=== PATIENT | female | born 1960 | race Caucasian/White ===

== ENCOUNTER 2020-02-17 09:35 | Outpatient (CLI) | payer OTHER, SELFPAY ==
--- NOTE | ~2020-02-17 | MM_ITS ---
EXAMINATION: MM screening parisa BI w emili HISTORY: Screening mammogram TECHNIQUE: Craniocaudal and mediolateral oblique 3-D tomosynthesis images were obtained and synthetic 2-D images were generated. CAD analysis was submitted and interpreted. COMPARISON: 01/25/2019, 01/05/2018, 10/19/2016 bilateral digital screening mammogram examinations BREAST PARENCHYMAL COMPOSITION: There are scattered areas of fibroglandular density. FINDINGS: A few benign calcifications are noted. There is no evidence of suspicious mass, calcificati on, or architectural distortion to suggest malignancy in either breast. There has been no suspicious interval change. IMPRESSION: 1. No mammographic evidence of malignancy. 2. Recommend routine screening mammography in one year. BI-RADS Category 2: Benign finding(s). Reviewed, dictated and finalized at location A.
== END 2020-02-17 09:36 | disposition home or self-care (01) ==
PROVIDERS: PCP Family Medicine; Visit Provider Obstetrics & Gynecology
DX: Z12.31 Encounter for screening mammogram for malignant neoplasm of breast (principal)
CPT/HCPCS: 77063; 77067

== ENCOUNTER 2020-05-13 09:24 | Emergency (ER) | payer OTHER, SELFPAY ==
--- NOTE | ~2020-05-13 | XR_ITS ---
EXAMINATION: XR hip RT min 2V EXAM DATE: 05/13/2020 09:49 INDICATION: Initial encounter following injury, with pain of the right hip posteriorly. Fall a week ago. TECHNIQUE: Right hip frontal, crosstable lateral and 'frog-leg' projections for interpretation. The re is no prior study for comparison. FINDINGS: Smooth right hip femoral head contour, no radiographic evidence of avascular necrosis. The re are no acute fractures or dislocations identified. There is no subcutaneous gas. The soft tissue is unremarkable. There are no radiopaque foreign bodies. There is mild right hip primary osteoart hritis. IMPRESSION: No acute osseous findings. Reviewed, dictated and finalized at location A. IMPRESSION: No acute osseous findings.
[2020-05-13 09:32] VITALS: BP 109/69; PULSE 86; RESP 18; TEMP 36.3; O2SAT 99
--- NOTE | 2020-05-13 09:45 | ED.LOWEXIN ---
HPI - Extremity Injury (Lower) General Chief Complaint: Extremity Injury, Lower Stated Complaint: right hip pain Time Seen by Provider: 05/13/20 09:32 History of Present Illness HPI Narrative: She was cleaning and ran her right hip into a wall last week. She has had pain in the hip since that time. She has been able to walk and bear weight normally. No weakness, numbness, wound, bruising. She has been taking tylenol without relief. No previous injury. Related Data Home Medications Medication Instructions Recorded Confirmed diphenhydramine HCl 25 mg capsule 50 mg PO Q4-6H PRN cap 08/18/19 05/11/20 omega-3 fatty acids 1,000 mg 2,000 mg PO DAILY cap 08/25/19 05/11/20 capsule aspirin 81 mg tablet,delayed 81 mg PO DAILY 09/16/19 05/11/20 release levothyroxine 125 mcg tablet 125 mcg PO DAILY 10/14/19 05/11/20 Allergies Allergy/AdvReac Type Severity Reaction Status Date / Time No Known Allergies Allergy Unknown Verified 05/13/20 09:35 Review of Systems Review of Systems: All systems reviewed & are unremarkable except as noted in HPI and below Constitutional: Constitutional: Denies chills, Denies fever(s) and Denies weakness Cardiovascular: Cardiovascular: Denies chest pain Respiratory: Respiratory: Denies dyspnea Gastrointestinal: Gastrointestinal: Denies nausea and Denies vomiting Musculoskeletal: Musculoskeletal: Denies back pain Neurologic: Denies numbness and Denies weakness [facility] Past Medical History Medical History Chest pain in adult Chronic pulmonary embolism without acute cor pulmonale Combined systolic and diastolic cardiac dysfunction BLANKENSHIP (dyspnea on exertion) Essential hypertension Hypersomnia Hypothyroidism, unspecified Other hypertrophic cardiomyopathy Pulmonary embolism without acute cor pulmonale Severe mitral regurgitation SOB (shortness of breath) Type 2 diabetes mellitus without complications Wheezy bronchitis Surgical History Surgical History History of hysterectomy Family History Family History Father Hypertension Family history of rheumatoid arthritis Family history of malignant neoplasm Mother Cerebrovascular accident Family history of pulmonary embolism, Onset Age: 25 Grandparent Family history of coronary artery disease Diabetes mellitus Other Family history of diabetes mellitus in first degree relative Social History Social History Smoking status: Former smoker Smoking end date: 08/27/91 Alcohol intake: current Exam Const: General: no acute distress and alert Orientation/consciousness: patient oriented x3 HENMT: Head: normal to inspection Resp: Effort & Inspection: normal respiratory effort Auscultation: clear to auscultation bilaterally Cardio: Rate: regular rate Rhythm: regular rhythm Other: 2 + right DP Skin: General skin exam: normal color Rashes: no rashes Wounds: no wounds Other: No bruising Neuro: General: patient oriented x3, moves all extremities, no focal motor deficits and CN's II-XI intact bilaterally Speech: normal speech Extrem: Other: Tenderness over right hip. Otherwise normal exam Course Vital Signs Vital signs: Vital Signs Temperature 36.3 C L 05/13/20 09:32 Pulse Rate 86 05/13/20 09:32 Respiratory Rate 18 05/13/20 09:32 Blood Pressure 109/69 05/13/20 09:32 Pulse Oximetry 99 05/13/20 09:32 Temperature 36.3 C L 05/13/20 09:32 Pulse Rate 80 05/13/20 10:45 Respiratory Rate 15 05/13/20 10:45 Blood Pressure 106/66 05/13/20 10:45 Pulse Oximetry 98 05/13/20 10:45 MDM - Extremity Injury (Lower) MDM Narrative Medical decision making narrative: Negative x-ray. Medical Records Attestation: I reviewed the patient's medical records. Imaging
[2020-05-13] MEDS: KETOROLAC (*BKC) 60 MG/2 ML VIAL IM (10:04)
[2020-05-13 10:45] VITALS: BP 106/66; PULSE 80; RESP 15; O2SAT 98
== END 2020-05-13 10:46 | disposition home or self-care (01) ==
PROVIDERS: Emergency Provider Emergency Medicine; PCP Family Medicine
DX: S70.01XA Contusion of right hip, initial encounter (principal); W22.01XA Walked into wall, initial encounter; Z79.82 Long term (current) use of aspirin; I10 Essential (primary) hypertension; E03.9 Hypothyroidism, unspecified; E11.9 Type 2 diabetes mellitus without complications; I34.0 Nonrheumatic mitral (valve) insufficiency; Z86.711 Personal history of pulmonary embolism
CPT/HCPCS: 73502; 96372; 99283; J1885

== ENCOUNTER 2020-05-18 10:30 | Outpatient (CLI) | payer OTHER, SELFPAY ==
[2020-05-18 11:10] LABS: Alanine Aminotransferase 12 U/L (4-35); Albumin Level 4.4 g/dL (3.5-5.1); Alkaline Phosphatase 42 U/L (38-126); Anion Gap 8 mmol/L (8-16); Aspartate Amino Transferase 17 U/L (14-36); Bilirubin,Total 0.2 mg/dL (0.2-1.3); Blood Urea Nitrogen 31 mg/dL (7-17); Calcium 9.9 mg/dL (8.4-10.2); Carbon Dioxide 24 mmol/L (22-30); Chloride 102 mmol/L (98-107); Cholesterol 126 mg/dL (0-200); Estimated Glomerular Filt Rate 51; Glucose 107 mg/dL (65-105); HDL Direct 46 mg/dL; Potassium 5.2 mmol/L (3.4-5.0); Sodium 134 mmol/L (137-145); Triglycerides 154 mg/dL (<150)
[2020-05-18 11:21] LABS: LDL Cholesterol Direct 47 mg/dL
== END 2020-05-18 10:31 | disposition home or self-care (01) ==
LOC: ANHLAB 10:32
PROVIDERS: PCP Family Medicine; Visit Provider Internal Medicine Cardiovascular Disease
DX: E78.5 Hyperlipidemia, unspecified (principal)
CPT/HCPCS: 36415; 80053; 80061

== ENCOUNTER 2020-06-03 07:59 | Outpatient (CLI) | payer OTHER, SELFPAY ==
--- NOTE | ~2020-06-03 | CT_ITS ---
EXAMINATION: CT chest high resolution wo az DATE: 06/03/2020 08:27 INDICATION: Lung nodule TECHNIQUE: Computed tomography (CT) of the chest was performed without intravenous contrast. The dose -length product (DLP) was 117.78 mGy-cm. Automated exposure control and iterative reconstruction tech nique were employed. COMPARISON: 01/24/2019, 01/25/2016 FINDINGS: There is a stable 1.6 x 0.9 cm calcified nodule of the right lower lobe. No new or suspicio us pulmonary nodule is identified. The lungs are free of acute opacities. There is no pleural effusio n or pneumothorax. No pathologically enlarged thoracic lymph nodes are identified. The heart size is normal. Calcified coronary artery atherosclerosis is noted. There is mild thoracic spondylosis. IMPRESSION: 1. Benign partially calcified nodule of the right lower lobe. No suspicious pulmonary nodules identif ied. Reviewed, dictated and finalized at location A. IMPRESSION: 1. Benign partially calcified nodule of the right lower lobe. No suspicious pul monary nodules identified.
== END 2020-06-03 08:00 | disposition home or self-care (01) ==
PROVIDERS: PCP Family Medicine; Visit Provider Family Medicine
DX: R91.1 Solitary pulmonary nodule (principal)
CPT/HCPCS: 71250

== ENCOUNTER 2020-06-07 10:44 | Outpatient (CLI) | payer OTHER, SELFPAY ==
[2020-06-07 11:59] LABS: Alanine Aminotransferase 15 U/L (4-35); Albumin Level 4.2 g/dL (3.5-5.1); Alkaline Phosphatase 42 U/L (38-126); Anion Gap 10 mmol/L (8-16); Aspartate Amino Transferase 19 U/L (14-36); Bilirubin,Total 0.2 mg/dL (0.2-1.3); Blood Urea Nitrogen 19 mg/dL (7-17); Calcium 9.5 mg/dL (8.4-10.2); Carbon Dioxide 24 mmol/L (22-30); Chloride 101 mmol/L (98-107); Estimated Glomerular Filt Rate > 60; Glucose 80 mg/dL (65-105); Potassium 4.7 mmol/L (3.4-5.0); Sodium 135 mmol/L (137-145)
== END 2020-06-07 10:45 | disposition home or self-care (01) ==
PROVIDERS: PCP Family Medicine; Visit Provider Internal Medicine Cardiovascular Disease
DX: E78.5 Hyperlipidemia, unspecified (principal); I10 Essential (primary) hypertension; I51.89 Other ill-defined heart diseases
CPT/HCPCS: 36415; 80053

== ENCOUNTER 2020-10-21 13:11 | Outpatient (CLI) | payer OTHER, SELFPAY ==
[2020-10-21 13:39] LABS: Basophils Absolute Auto 0.1 K/mm3 (0.0-0.1); Basophils Percent Auto 1.5 % (0.2-1.2); Eosinophils Absolute Auto 0.6 K/mm3 (0-0.3); Eosinophils Percent Auto 6.6 % (0-4.4); Hematocrit 40.9 % (37.0-47.0); Hemoglobin 13.6 g/dL (12.0-15.0); Immature Granulocyte Absolute 0.04 K/mm3 (0.00-0.031); Immature Granulocyte Percent A 0.4 % (0-0.5); Lymphocytes Absolute Auto 3.26 K/mm3 (0.9-3.2); Lymphocytes Percent Auto 34.1 % (18.3-44.2); Mean Corpuscular HGB Conc 33.3 g/dl (32-36); Mean Corpuscular Hemoglobin 29.2 pg (26-34); Mean Platelet Volume 9.1 fl (7.4-10.4); Monocytes Absolute Auto 0.6 K/mm3 (0.1-0.6); Monocytes Percent Auto 6.4 % (2.6-8.5); Neutrophils Absolute Auto 4.9 K/mm3 (1.3-6.7); Platelet Count Result 491 k/mm3 (150-375); Red Blood Count 4.65 M/mm3 (4.2-5.4); Red Cell Distribution Width 13.1 % (11.5-14.5); White Blood Count 9.6 K/mm3 (4.5-10.0)
[2020-10-21 13:59] LABS: Alanine Aminotransferase 16 U/L (4-35); Albumin Level 4.6 g/dL (3.5-5.1); Alkaline Phosphatase 51 U/L (38-126); Anion Gap 7 mmol/L (8-16); Aspartate Amino Transferase 23 U/L (14-36); Bilirubin,Total 0.4 mg/dL (0.2-1.3); Blood Urea Nitrogen 16 mg/dL (7-17); Calcium 9.9 mg/dL (8.4-10.2); Carbon Dioxide 27 mmol/L (22-30); Chloride 100 mmol/L (98-107); Cholesterol 117 mg/dL (0-200); Estimated Glomerular Filt Rate 57; Glucose 98 mg/dL (65-105); HDL Direct 62 mg/dL; Potassium 4.4 mmol/L (3.4-5.0); Sodium 134 mmol/L (137-145); Triglycerides 99 mg/dL (<150)
[2020-10-21 14:23] LABS: LDL Cholesterol Direct < 30 mg/dL
[2020-10-21 14:28] LABS: Thyroid Stimulating Hormone 0.726 uIU/mL (0.465-4.680)
[2020-10-21 15:21] LABS: Vitamin D 25 Hydroxy 24.9 ng/mL
== END 2020-10-21 13:12 | disposition home or self-care (01) ==
PROVIDERS: PCP Family Medicine; Visit Provider Family Medicine
DX: R20.0 Anesthesia of skin (principal); E78.5 Hyperlipidemia, unspecified; Z13.220 Encounter for screening for lipoid disorders; I12.9 Hypertensive chronic kidney disease with stage 1 through stage 4 chronic kidney disease, or unspecified chronic kidney disease; N18.30 Chronic kidney disease, stage 3 unspecified
CPT/HCPCS: 36415; 80048; 80061; 80076; 82306; 82607; 84443; 85025

== ENCOUNTER 2020-12-13 14:53 | Outpatient (CLI) | payer OTHER, SELFPAY ==
[2020-12-13 16:00] LABS: Magnesium 1.5 mg/dL (1.6-2.3)
== END 2020-12-13 14:54 | disposition home or self-care (01) ==
PROVIDERS: PCP Family Medicine; Visit Provider Internal Medicine Cardiovascular Disease
DX: E78.5 Hyperlipidemia, unspecified (principal)
CPT/HCPCS: 36415; 83735

== ENCOUNTER 2021-01-05 08:42 | Outpatient (CLI) | payer OTHER, SELFPAY ==
--- NOTE | 2021-01-05 16:03 | NEURO_ITS ---
Patient number; [id number] Impression: # Known diabetic complains of numbness of hands. # Mild evolving Carpal Tunnel Syndrome bilaterally. # No ulnar neuropathy. # Normal needle/EMG exam. Nerve Conduction Studies Anti Sensory Summary Table Stim Site NR Peak (ms) P-T Amp (?V) Site1 Site2 Delta-P (ms) Dist (cm) Niko (m/s) Left Median Anti Sensory (2-3nd Digit) Wrist 3.9 21.4 Wrist 2-3nd Digit 3.9 14.0 36 Wrist 4.2 48.4 Wrist 2-3nd Digit 3.9 14.0 36 Right Median Anti Sensory (2-3nd Digit) Wrist 3.8 44.1 Wrist 2-3nd Digit 3.8 14.0 37 Wrist 4.1 35.2 Wrist 2-3nd Digit 3.8 14.0 37 Left Radial Anti Sensory (Base 1st Digit) Wrist 1.9 25.0 Wrist Base 1st Digit 1.9 0.0 Right Radial Anti Sensory (Base 1st Digit) Wrist 1.9 41.9 Wrist Base 1st Digit 1.9 0.0 Left Ulnar Anti Sensory (5th Digit) Wrist 2.1 46.5 Wrist 5th Digit 2.1 14.0 67 Right Ulnar Anti Sensory (5th Digit) Wrist 2.3 14.7 Wrist 5th Digit 2.3 14.0 61 Motor Summary Table Stim Site NR Onset (ms) O-P Amp (mV) Site1 Site2 Delta-0 (ms) Dist (cm) Niko (m/s) Left Median Motor (Abd Poll Brev) Wrist 3.8 1.2 Elbow Wrist 4.4 25.0 57 Elbow 8.2 1.6 Right Median Motor (Abd Poll Brev) Wrist 4.0 1.5 Elbow Wrist 4.4 23.0 52 Elbow 8.4 1.4 Left Ulnar Motor (Abd Dig Minimi) Wrist 2.8 5.4 A Elbow Wrist 4.8 27.0 56 A Elbow 7.6 4.9 Right Ulnar Motor (Abd Dig Minimi) Wrist 2.6 6.8 A Elbow Wrist 4.9 26.0 53 A Elbow 7.5 5.1 F Wave Studies NR F-Lat (ms) L-R F-Lat (ms) Left Median (Mrkrs) (Abd Poll Brev) 25.88 0.99 Right Median (Mrkrs) (Abd Poll Brev) 26.88 0.99 Left Ulnar (Mrkrs) (Abd Dig Min) 26.57 0.00 Right Ulnar (Mrkrs) (Abd Dig Min) 26.57 0.00 EMG Side Muscle Nerve Root Ins Act Fibs Amp Dur Recrt Comment Right 1stDorInt Ulnar C8-T1 Nml Nml Nml Nml Nml Right Ext Indicis Radial (Post Int) C7-8 Nml Nml Nml Nml Nml Right Ext Digitorum Radial (Post Int) C7-8 Nml Nml Nml Nml Nml Right BrachioRad Radial C5-6 Nml Nml Nml Nml Nml Right PronatorTeres Median C6-7 Nml Nml Nml Nml Nml Right Abd Poll Brev Median C8-T1 Nml Nml Nml Nml Nml Left 1stDorInt Ulnar C8-T1 Nml Nml Nml Nml Nml Left Ext Indicis Radial (Post Int) C7-8 Nml Nml Nml Nml Nml Left Ext Digitorum Radial (Post Int) C7-8 Nml Nml Nml Nml Nml Left BrachioRad Radial C5-6 Nml Nml Nml Nml Nml Left PronatorTeres Median C6-7 Nml Nml Nml Nml Nml Left Abd Poll Brev Median C8-T1 Nml Nml Nml Nml Nml MTDD
== END 2021-01-05 08:43 | disposition home or self-care (01) ==
PROVIDERS: PCP Family Medicine; Visit Provider Family Medicine
DX: R20.0 Anesthesia of skin (principal); G56.03 Carpal tunnel syndrome, bilateral upper limbs
CPT/HCPCS: 95886; 95911

== ENCOUNTER 2021-02-14 10:28 | Outpatient (CLI) | payer OTHER, SELFPAY ==
--- NOTE | 2021-02-14 10:34 | ECG_ITS ---
Measurements Intervals [place] Rate: 84 P: 48 TX: 170 QRS: 56 QRSD: 89 T: 57 QT: 349 QTc: 413 Interpretive Statements SINUS RHYTHM BASELINE ARTIFACT- I, II, III, AVR, AVL, AVF NORMAL ECG Electronically Signed On 02-14-2021 12:26:52 CDT by Francisco Javier Engel D.O.
[2021-02-14 11:24] LABS: Anion Gap 8 mmol/L (8-16); Blood Urea Nitrogen 10 mg/dL (7-17); Calcium 10.1 mg/dL (8.4-10.2); Carbon Dioxide 29 mmol/L (22-30); Chloride 104 mmol/L (98-107); Estimated Glomerular Filt Rate 51; Glucose 84 mg/dL (65-105); Sodium 141 mmol/L (137-145)
== END 2021-02-14 10:29 | disposition home or self-care (01) ==
PROVIDERS: Anesthesiology; PCP Family Medicine; Visit Provider Orthopaedic Surgery
DX: E78.5 Hyperlipidemia, unspecified (principal); I10 Essential (primary) hypertension; E11.9 Type 2 diabetes mellitus without complications; Z01.812 Encounter for preprocedural laboratory examination
CPT/HCPCS: 36415; 80048; 93005

== ENCOUNTER → 2021-02-18 00:48 | Outpatient (CLI) | payer OTHER, SELFPAY ==
[2021-02-19 16:57] LABS: SARS-CoV-2 RNA PCR Negative
== END ==
PROVIDERS: PCP Family Medicine; Visit Provider Orthopaedic Surgery
DX: Z01.812 Encounter for preprocedural laboratory examination (principal); Z20.822 Contact with and (suspected) exposure to COVID-19
CPT/HCPCS: C9803; U0003; U0005

== ENCOUNTER 2021-02-21 00:36 | Day surgery (SDC) | payer OTHER, SELFPAY ==
[2021-02-07 11:15] VITALS: BMI 25.3
[2021-02-21] VITALS (8 sets, daily range): BP systolic 103–147; BP diastolic 59–84; PULSE 78–97; RESP 16–20; TEMP 36.3–36.5; O2SAT 98–100
[2021-02-21] MEDS: LACTATED RINGERS 1,000 ML 30 ML IV CONT (11:20)
[2021-02-21] MEDS: ACETAMINOPHEN 500 MG TABLET 1000 MG PO (11:22)
[2021-02-21] MEDS: KETOROLAC 15 MG/ML VIAL (*BKC) IV PUSH (11:23)
[2021-02-21 11:26] LABS: Glucose Point of Care 95 mg/dl (65-105)
--- NOTE | 2021-02-21 12:08 | WPDANESEPPF ---
Anes - Initial Pre Proc Eval Procedure: Operation Date: 02/21/21 13:00 Proposed Procedures p Right Carpal Tunnel Release, Right Cubital Tunnel Release - Alonso Marquez MD Date/Time: 02/21/21 12:08 Surgeon: Alonso Marquez MD Pre Op Diagnosis: right carpal and cubital tunnel syndrome Patient Data Age: 60 Gender: F Height: 1.47 m Weight: 56.4 kg Last Vital Signs Temp 36.3 C L 02/21/21 10:56 Pulse 97 02/21/21 10:56 Resp 18 02/21/21 10:56 BP 137/84 02/21/21 10:56 Pulse Ox 99 02/21/21 10:56 Allergies Allergy/AdvReac Type Severity Reaction Status Date / Time No Known Allergies Allergy Unknown Verified 02/21/21 11:31 Home Medications Medication Instructions Recorded Confirmed Type diphenhydramine HCl 25 mg capsule 50 mg PO Q4-6H PRN cap 08/18/19 02/21/21 History omega-3 fatty acids 1,000 mg 2,000 mg PO DAILY cap 08/25/19 02/21/21 History capsule aspirin 81 mg tablet,delayed 81 mg PO DAILY 09/16/19 02/21/21 History release blood-glucose meter #1 each 10/14/19 02/21/21 Rx levothyroxine 125 mcg tablet 125 mcg PO DAILY 10/14/19 02/21/21 History alcohol swabs 1 pad TOPICAL BID #200 each 05/10/20 02/21/21 Rx ibuprofen 600 mg PO QID PRN #30 tablet 05/13/20 02/21/21 Rx blood sugar diagnostic #60 each 10/02/20 02/21/21 Rx carvedilol 3.125 mg tablet 3.125 mg PO Q12H #60 tablet 10/13/20 02/21/21 Rx meclizine 25 mg tablet 25 mg PO TID PRN #30 tablet 10/19/20 02/21/21 Rx cyclobenzaprine 10 mg tablet 10 mg PO TID PRN #90 tablet 11/25/20 02/21/21 Rx lancets 33 gauge See Rx Instructions .ROUTE 11/29/20 02/21/21 Rx .COMPLEX #100 unspecified lisinopril 2.5 mg tablet 2.5 mg PO DAILY #30 tablet 12/05/20 02/21/21 Rx cholecalciferol (vitamin D3) 1,250 1,250 mcg PO WEEKLY #8 cap 01/10/21 02/21/21 Rx mcg (50,000 unit) capsule atorvastatin 10 mg tablet 10 mg PO DAILY #30 tablet 01/13/21 02/21/21 Rx pen needle, diabetic 31 gauge x #30 each 01/19/21 02/21/21 Rx 1/4 fenofibrate 160 mg PO DAILY 02/07/21 02/21/21 History glimepiride 1 mg PO DAILY 02/07/21 02/21/21 History liraglutide 0.6 mg/0.1 mL (18 mg/3 See Rx Instructions .ROUTE 02/13/21 02/21/21 Rx mL) subcutaneous pen injector .COMPLEX #9 syringe metformin 500 mg tablet,extended 2,000 mg PO QACDINNER #120 tablet 02/15/21 02/21/21 Rx release 24 hr Laboratory Tests 02/21/21 11:18 POC Capillary Glucose 95 mg/dl mg/dl (65-105) Patient hx anesthesia problems: none Family hx anesthesia problems: none PMFSH Past Medical History Medical History Bilateral hand numbness BMI 25.0-25.9,adult Chest pain in adult Chronic pulmonary embolism without acute cor pulmonale Combined systolic and diastolic cardiac dysfunction Diabetes A1c 5.8 2-23-21 BLANKENSHIP (dyspnea on exertion) Essential hypertension History of blood clots Hypersomnia Hypokalemia Hypothyroidism, unspecified Lung nodule Other hypertrophic cardiomyopathy Pulmonary embolism without acute cor pulmonale Severe mitral regurgitation SOB (shortness of breath) Stage 3 chronic kidney disease Type 2 diabetes mellitus without complications Wheezy bronchitis Surgical History Surgical History History of hysterectomy Family History Family History Father Hypertension Family history of rheumatoid arthritis Family history of malignant neoplasm Mother Cerebrovascular accident Family history of pulmonary embolism, Onset Age: 25 Grandparent Family history of coronary artery disease Diabetes mellitus Other Family history of diabetes mellitus in first degree relative Social History Social History Smoking packs per day: 1 Smoking cigarettes per day: 20.0 Years smoked: 10 Smoking pack-years: 10.00 Smoking status: Former smoker Tobacco
--- NOTE | 2021-02-21 12:18 | WPDHPUPDATE1 ---
History and Physical Update Update Date/Time: 02/21/21 12:18 History and Physical has been reviewed, including an updated exam of the patient. There are NO changes in the patient's condition. Risks, benefits, and alternatives have been discussed and questions answered. Patient agrees to proceed with procedure.
[2021-02-21] MEDS: ceFAZolin 2 GM/D5W 50 ML 2 GM/50 ML BAG IVPB (12:36)
[2021-02-21] MEDS: LIDO 1%/EPINEPHRINE 1:100,000 20 ML VIAL 30 ML INFILTRATE (13:03)
--- NOTE | 2021-02-21 13:28 | P.OP_ITS ---
Procedure Note - Detailed Date of Procedure 02/21/21 Pre-op Diagnosis right carpal and cubital tunnel syndrome Post-op Diagnosis same Procedure Performed right carpal and cubital tunnel releases Surgeon Alonso Marquez MD Educational Psychology Professor Naveed Anesthesia general Indications see H&P Description of Procedure The patient was identified and proper side identified. After being taken to the operating room and transferred to the OR table, a nonsterile tourniquet was placed high on the right upper extremity, which was prepped and draped in the usual sterile fashion. After general IV sedation was administered with placement of an LMA, the subcutaneous tissue in the area of the incisions was infiltrated with several cc of 0.25% Marcaine and epinephrine solution each. The extremity was exsanguinated and tourniquet inflated to 250 mmHg remaining up for approximately 20 minutes. The elbow was addressed first. A curvilinear incision was made over the cubital tunnel retinaculum. Subcutaneous tissue was bluntly dissected protecting neurovascular structures. The retinaculum was identified and transected longitudinally in line with the ulnar nerve. The elbow was taken through range of motion showing no tendency for the nerve to sub luxate out of the groove. Wound was irrigated with sterile saline. Skin edges reapproximated with for 0 nylon suture. Attention was then turned to the carpal canal. A longitudinal incision was over the ulnar aspect of the transverse carpal ligament. Subcutaneous tissue was bluntly dissected down to the ligament, which was identified and then transected longitudinally in line with the incision releasing the contents of the carpal canal. Hemostasis was carried out with bipolar electrocautery at both sites during the procedure The wound was irrigated with sterile saline solution. Skin edges were reapproximated with four 0 nylon suture and a sterile dressing was applied. The tourniquet was released.. The patient was awakened, extubated and taken to recovery area in stable condition. Estimated Blood Loss 0 Tourniquet Time 20 Drains No Packing No Pathology none sent Complications No immediate complications Condition stable Disposition PACU
[2021-02-21 14:01] LABS: Glucose Point of Care 97 mg/dl (65-105)
[2021-02-21] MEDS: traMADol HCL (*CRX) 50 MG TABLET PO (15:21)
--- NOTE | 2021-02-21 15:26 | SUR.PHASEII ---
WAITED FOR RIDE FOR 30 MINUTES.
== END 2021-02-21 15:20 | disposition home or self-care (01) ==
PROVIDERS: PCP Family Medicine; Visit Provider Orthopaedic Surgery
PROC: (CPT 64721; principal; 2021-02-21 13:00)
DX: G56.01 Carpal tunnel syndrome, right upper limb (principal); G56.21 Lesion of ulnar nerve, right upper limb; R20.0 Anesthesia of skin; Z79.82 Long term (current) use of aspirin; Z86.711 Personal history of pulmonary embolism; R91.1 Solitary pulmonary nodule; I13.10 Hypertensive heart and chronic kidney disease without heart failure, with stage 1 through stage 4 chronic kidney disease, or unspecified chronic kidney disease; I34.0 Nonrheumatic mitral (valve) insufficiency; E11.22 Type 2 diabetes mellitus with diabetic chronic kidney disease; N18.30 Chronic kidney disease, stage 3 unspecified; E03.9 Hypothyroidism, unspecified; G47.10 Hypersomnia, unspecified; E87.6 Hypokalemia; I42.2 Other hypertrophic cardiomyopathy; Z87.891 Personal history of nicotine dependence; Z79.4 Long term (current) use of insulin
CPT/HCPCS: 64721; 64718; 82948; A4565; A9270; J0690; J1885; J2250; J3010; J7120

== ENCOUNTER → 2021-03-11 01:43 | Outpatient (CLI) | payer OTHER, SELFPAY ==
[2021-03-11 19:10] LABS: SARS-CoV-2 RNA PCR Negative
== END ==
PROVIDERS: PCP Family Medicine; Visit Provider Orthopaedic Surgery
DX: Z01.812 Encounter for preprocedural laboratory examination (principal); Z20.822 Contact with and (suspected) exposure to COVID-19
CPT/HCPCS: C9803; U0003; U0005

== ENCOUNTER 2021-03-14 02:07 | Day surgery (SDC) | payer OTHER, SELFPAY ==
[2021-03-09 10:10] VITALS: BMI 25.9
--- NOTE | 2021-03-13 11:28 | WPDANESEPPF ---
Anes - Initial Pre Proc Eval Procedure: Operation Date: 03/14/21 13:30 Proposed Procedures p Left Carpal Tunnel Release, Left Cubital Tunnel Release - Alonso Marquez MD Date/Time: 03/13/21 11:28 Surgeon: Alonso Marquez MD Pre Op Diagnosis: Left Carpal and Cubital Tunnel Syndrome Patient Data Age: 60 Gender: F Height: 1.47 m Weight: 56.4 kg Allergies Allergy/AdvReac Type Severity Reaction Status Date / Time No Known Allergies Allergy Unknown Verified 03/09/21 10:16 Home Medications Medication Instructions Recorded Confirmed Type diphenhydramine HCl 25 mg capsule 50 mg PO Q4-6H PRN cap 08/18/19 03/09/21 History omega-3 fatty acids 1,000 mg 2,000 mg PO DAILY cap 08/25/19 03/09/21 History capsule aspirin 81 mg tablet,delayed 81 mg PO DAILY 09/16/19 03/09/21 History release blood-glucose meter #1 each 10/14/19 03/09/21 Rx levothyroxine 125 mcg tablet 125 mcg PO DAILY 10/14/19 03/09/21 History alcohol swabs 1 pad TOPICAL BID #200 each 05/10/20 03/09/21 Rx ibuprofen 600 mg PO QID PRN #30 tablet 05/13/20 03/09/21 Rx carvedilol 3.125 mg tablet 3.125 mg PO Q12H #60 tablet 10/13/20 03/09/21 Rx meclizine 25 mg tablet 25 mg PO TID PRN #30 tablet 10/19/20 03/09/21 Rx cyclobenzaprine 10 mg tablet 10 mg PO TID PRN #90 tablet 11/25/20 03/09/21 Rx lancets 33 gauge See Rx Instructions .ROUTE 11/29/20 03/09/21 Rx .COMPLEX #100 unspecified lisinopril 2.5 mg tablet 2.5 mg PO DAILY #30 tablet 12/05/20 03/09/21 Rx atorvastatin 10 mg tablet 10 mg PO DAILY #30 tablet 01/13/21 03/09/21 Rx pen needle, diabetic 31 gauge x #30 each 01/19/21 03/09/21 Rx 1/4 fenofibrate 160 mg PO DAILY 02/07/21 03/09/21 History glimepiride 1 mg PO DAILY 02/07/21 03/09/21 History liraglutide 0.6 mg/0.1 mL (18 mg/3 See Rx Instructions .ROUTE 02/13/21 03/09/21 Rx mL) subcutaneous pen injector .COMPLEX #9 syringe metformin 500 mg tablet,extended 2,000 mg PO QACDINNER #120 tablet 02/15/21 03/09/21 Rx release 24 hr blood sugar diagnostic #100 ea 02/23/21 03/09/21 Rx cholecalciferol (vitamin D3) 1,250 1,250 mcg PO WEEKLY #8 cap 02/28/21 03/09/21 Rx mcg (50,000 unit) capsule PMFSH Past Medical History Medical History (Updated 03/13/21 @ 11:30 by Andre Benson MD) BMI 25.0-25.9,adult Chest pain in adult Chronic pulmonary embolism without acute cor pulmonale Combined systolic and diastolic cardiac dysfunction ef 35-40% Diabetes A1c 5.8 2-23-21 BLANKENSHIP (dyspnea on exertion) Essential hypertension History of blood clots Hypersomnia Hypokalemia Hypothyroidism, unspecified Lung nodule Other hypertrophic cardiomyopathy Pulmonary embolism without acute cor pulmonale Pulmonary HTN Severe mitral regurgitation SOB (shortness of breath) Stage 3 chronic kidney disease Type 2 diabetes mellitus without complications Wheezy bronchitis Surgical History Surgical History History of hysterectomy History of surgery on upper extremity right carpal and cubital tunnel releases February 21, 2021 Family History Family History Father Hypertension Family history of rheumatoid arthritis Family history of malignant neoplasm Mother Cerebrovascular accident Family history of pulmonary embolism, Onset Age: 25 Grandparent Family history of coronary artery disease Diabetes mellitus Other Family history of diabetes mellitus in first degree relative Social History Social History Smoking packs per day: 1 Smoking cigarettes per day: 20.0 Years smoked: 10 Smoking pack-years: 10.00 Smoking status: Former smoker Tobacco type: cigarettes Second hand tobacco smoke exposure: No Smoking end date: 08/27/90 Additional smoking assessment comments: QUIT 1990 Alcohol intake: never Substance use: never Substance use type: does not use Spiritual care kristin
[2021-03-14] MEDS: KETOROLAC 15 MG/ML VIAL (*BKC) IV PUSH (11:15)
[2021-03-14] MEDS: ACETAMINOPHEN 500 MG TABLET 1000 MG PO (11:15)
[2021-03-14] MEDS: LACTATED RINGERS 1,000 ML 30 ML IV CONT (11:15)
[2021-03-14 11:21] LABS: Glucose Point of Care 76 mg/dl (65-105)
[2021-03-14 11:59] VITALS: BP 144/84; PULSE 94; RESP 18; TEMP 36.3; O2SAT 100
--- NOTE | 2021-03-14 13:20 | WPDANESEPPF ---
Anes - Initial Pre Proc Eval Procedure: Operation Date: 03/14/21 13:30 Proposed Procedures p Left Carpal Tunnel Release, Left Cubital Tunnel Release - Alonso Marquez MD Date/Time: 03/14/21 13:20 Surgeon: Alonso Marquez MD Pre Op Diagnosis: Left Carpal and Cubital Tunnel Syndrome Patient Data Age: 60 Gender: F Height: 1.47 m Weight: 57 kg Last Vital Signs Temp 36.3 C L 03/14/21 11:59 Pulse 94 03/14/21 11:59 Resp 18 03/14/21 11:59 BP 144/84 H 03/14/21 11:59 Pulse Ox 100 03/14/21 11:59 Allergies Allergy/AdvReac Type Severity Reaction Status Date / Time No Known Allergies Allergy Unknown Verified 03/14/21 11:55 Home Medications Medication Instructions Recorded Confirmed Type diphenhydramine HCl 25 mg capsule 50 mg PO Q4-6H PRN cap 08/18/19 03/09/21 History omega-3 fatty acids 1,000 mg 2,000 mg PO DAILY cap 08/25/19 03/14/21 History capsule aspirin 81 mg tablet,delayed 81 mg PO DAILY 09/16/19 03/14/21 History release blood-glucose meter #1 each 10/14/19 03/09/21 Rx levothyroxine 125 mcg tablet 125 mcg PO DAILY 10/14/19 03/14/21 History alcohol swabs 1 pad TOPICAL BID #200 each 05/10/20 03/09/21 Rx ibuprofen 600 mg PO QID PRN #30 tablet 05/13/20 03/09/21 Rx carvedilol 3.125 mg tablet 3.125 mg PO Q12H #60 tablet 10/13/20 03/14/21 Rx meclizine 25 mg tablet 25 mg PO TID PRN #30 tablet 10/19/20 03/14/21 Rx lisinopril 2.5 mg tablet 2.5 mg PO DAILY #30 tablet 12/05/20 03/14/21 Rx atorvastatin 10 mg tablet 10 mg PO DAILY #30 tablet 01/13/21 03/14/21 Rx pen needle, diabetic 31 gauge x #30 each 01/19/21 03/09/21 Rx 1/4 fenofibrate 160 mg PO DAILY 02/07/21 03/14/21 History glimepiride 1 mg PO DAILY 02/07/21 03/14/21 History liraglutide 0.6 mg/0.1 mL (18 mg/3 See Rx Instructions .ROUTE 02/13/21 03/14/21 Rx mL) subcutaneous pen injector .COMPLEX #9 syringe metformin 500 mg tablet,extended 2,000 mg PO QACDINNER #120 tablet 02/15/21 03/14/21 Rx release 24 hr blood sugar diagnostic #100 ea 02/23/21 03/09/21 Rx cholecalciferol (vitamin D3) 1,250 1,250 mcg PO WEEKLY #8 cap 02/28/21 03/14/21 Rx mcg (50,000 unit) capsule cyclobenzaprine 10 mg tablet See Rx Instructions .ROUTE 03/14/21 03/14/21 Rx .COMPLEX #90 tablet lancets 33 gauge See Rx Instructions .ROUTE 03/14/21 03/14/21 Rx .COMPLEX #100 unspecified Laboratory Tests 03/14/21 11:15 POC Capillary Glucose 76 mg/dl mg/dl (65-105) Patient hx anesthesia problems: none Family hx anesthesia problems: none PMFSH Past Medical History Medical History (Updated 03/14/21 @ 13:27 by Karl Chris, DO) BMI 25.0-25.9,adult Chest pain in adult Chronic pulmonary embolism without acute cor pulmonale Diabetes A1c 5.8 - BLANKENSHIP (dyspnea on exertion) Essential hypertension History of blood clots Hypersomnia Hypokalemia Hypothyroidism, unspecified Lung nodule Other hypertrophic cardiomyopathy Pulmonary embolism without acute cor pulmonale SOB (shortness of breath) Stage 3 chronic kidney disease Type 2 diabetes mellitus without complications Wheezy bronchitis Surgical History Surgical History History of hysterectomy History of surgery on upper extremity right carpal and cubital tunnel releases February 21, 2021 Family History Family History Father Hypertension Family history of rheumatoid arthritis Family history of malignant neoplasm Mother Cerebrovascular accident Family history of pulmonary embolism, Onset Age: 25 Grandparent Family history of coronary artery disease Diabetes mellitus Other Family history of diabetes mellitus in first degree relative Social History Social History Smoking packs per day: 1 Smoking cigarettes per day: 20.0 Years smoked: 10 Smoking pack-years: 10.00 Smoking status: Former smo
--- NOTE | 2021-03-14 13:44 | WPDHPUPDATE1 ---
History and Physical Update Update Date/Time: 03/14/21 13:44 History and Physical has been reviewed, including an updated exam of the patient. There are NO changes in the patient's condition. Risks, benefits, and alternatives have been discussed and questions answered. Patient agrees to proceed with procedure.
[2021-03-14] MEDS: ceFAZolin 2 GM/D5W 50 ML 2 GM/50 ML BAG IVPB (13:48)
[2021-03-14] MEDS: LIDO 1%/EPINEPHRINE 1:100,000 50 ML VIAL 20 ML INFILTRATE (14:16)
[2021-03-14 14:43] VITALS: BP 141/71; PULSE 75; RESP 16; O2SAT 100
--- NOTE | 2021-03-14 14:49 | P.OP_ITS ---
Procedure Note - Detailed Date of Procedure 03/14/21 Pre-op Diagnosis Left Carpal and Cubital Tunnel Syndrome Post-op Diagnosis same Procedure Performed left carpal and cubital tunnel releases Surgeon Alonso Marquez MD Computer Engineering Technician Naveed Anesthesia MAC and local Indications see H&P Description of Procedure The patient was identified and proper side identified. After being taken to the operating room and transferred to the OR table, a nonsterile tourniquet was placed high on the left upper extremity, which was prepped and draped in the usual sterile fashion. After IV sedation was administered with placement an LMA2, the subcutaneous tissue in the area of the incisions was infiltrated with several cc of 0.25% Marcaine and epinephrine solution. The extremity was exsanguinated and tourniquet inflated to 250 mmHg remaining up for approximately 22 minutes. The cubital tunnel was addressed first. A longitudinal incision was made over the cubital tunnel retinaculum. Subcutaneous tissue was sharply dissected protecting neurovascular structures. The retinaculum was identified and transected in line with the incision freeing up the ulnar nerve. The elbow was taken through range of motion and the nerve was stable. Hemostasis was carried out with bipolar electrocautery. Wound was irrigated with sterile saline. Skin edges were reapproximated with for 0 nylon interrupted sutures. Attention was then turned to the carpal tunnel. A longitudinal incision was over the ulnar aspect of the transverse carpal ligament. Subcutaneous tissue was bluntly dissected down to the ligament, which was identified and then transected longitudinally in line with the incision releasing the contents of the carpal canal. Hemostasis was carried out with bipolar electrocautery. The wound was irrigated with sterile saline solution. Skin edges were reapproximated with four 0 nylon suture and a sterile dressing was applied to both incisions and secured with a 4 in Osiel wrap. Tourniquet was released. Patient tolerated the procedure well, was awakened, extubated and taken to outpatient recovery area in stable condition. There were no known intraoperative complications. Estimated blood loss negligible. She received perioperative antibiotics. Estimated Blood Loss 1 Tourniquet Time 22 Drains No Packing No Pathology none sent Complications No immediate complications Condition stable Disposition PACU
[2021-03-14 15:10] VITALS: BP 151/83; PULSE 75; RESP 20
[2021-03-14 15:35] VITALS: BP 169/74; PULSE 73; RESP 20
== END 2021-03-14 15:42 | disposition home or self-care (01) ==
PROVIDERS: PCP Family Medicine; Visit Provider Orthopaedic Surgery
PROC: (CPT 64721; principal; 2021-03-14 13:30)
DX: G56.02 Carpal tunnel syndrome, left upper limb (principal); G56.22 Lesion of ulnar nerve, left upper limb; I13.0 Hypertensive heart and chronic kidney disease with heart failure and stage 1 through stage 4 chronic kidney disease, or unspecified chronic kidney disease; I50.40 Unspecified combined systolic (congestive) and diastolic (congestive) heart failure; E11.22 Type 2 diabetes mellitus with diabetic chronic kidney disease; N18.30 Chronic kidney disease, stage 3 unspecified; E03.9 Hypothyroidism, unspecified; I27.82 Chronic pulmonary embolism; I42.2 Other hypertrophic cardiomyopathy; Z87.891 Personal history of nicotine dependence; Z79.84 Long term (current) use of oral hypoglycemic drugs; Z79.899 Other long term (current) drug therapy; Z79.82 Long term (current) use of aspirin
CPT/HCPCS: 64721; 64718; 82948; A4565; A9270; J0690; J1100; J1885; J2250; J2405; J2704; J3010; J7120

== ENCOUNTER 2021-03-31 16:18 | Outpatient (CLI) | payer OTHER, SELFPAY ==
--- NOTE | ~2021-03-31 | MM_ITS ---
EXAMINATION: MM screening parisa BI w emili HISTORY: Screening TECHNIQUE: Craniocaudal and mediolateral oblique 3-D tomosynthesis images were obtained and synthetic 2-D images were generated. CAD analysis was submitted and interpreted. COMPARISON: Comparison to multiple prior studies sequentially, with oldest reviewed study dated 07/29. BREAST PARENCHYMAL COMPOSITION: Breast composed of scattered areas of fibroglandular density FINDINGS: There is no evidence of suspicious mass, calcification, or architectural distortion to sugg est malignancy in either breast. There has been no suspicious interval change. IMPRESSION: 1. No mammographic evidence of malignancy. 2. Recommend routine screening mammography in one year. BI-RADS Category 1: Negative Reviewed, dictated and finalized at location A.
== END 2021-03-31 16:19 | disposition home or self-care (01) ==
LOC: ANHIMG 16:21
PROVIDERS: PCP Family Medicine; Visit Provider Obstetrics & Gynecology
DX: Z12.31 Encounter for screening mammogram for malignant neoplasm of breast (principal)
CPT/HCPCS: 77063; 77067

== ENCOUNTER → 2021-07-13 09:21 | Outpatient (CLI) | payer OTHER, SELFPAY ==
[2021-07-13 18:47] LABS: SARS-CoV-2 RNA PCR Negative
== END ==
PROVIDERS: PCP Family Medicine; Visit Provider Family Medicine
DX: J02.9 Acute pharyngitis, unspecified (principal); R05.9 Cough, unspecified; Z20.822 Contact with and (suspected) exposure to COVID-19
CPT/HCPCS: C9803; U0003; U0005

== ENCOUNTER 2021-08-09 08:42 | Outpatient (CLI) | payer OTHER, SELFPAY ==
[2021-08-09 09:18] LABS: Hematocrit 36.2 % (37.0-47.0); Hemoglobin 11.6 g/dL (12.0-15.0); Mean Corpuscular Hemoglobin 29.1 pg (26-34); Mean Platelet Volume 10.2 fl (7.4-10.4); Platelet Count Result 423 k/mm3 (150-375); Red Blood Count 3.98 M/mm3 (4.2-5.4); Red Cell Distribution Width 12.7 % (11.5-14.5)
[2021-08-09 09:33] LABS: Alanine Aminotransferase 14 U/L (4-35); Albumin Level 4.4 g/dL (3.5-5.1); Alkaline Phosphatase 44 U/L (38-126); Anion Gap 11 mmol/L (8-16); Aspartate Amino Transferase 19 U/L (14-36); Bilirubin,Total 0.3 mg/dL (0.2-1.3); Blood Urea Nitrogen 12 mg/dL (7-17); Calcium 9.8 mg/dL (8.4-10.2); Carbon Dioxide 23 mmol/L (22-30); Chloride 105 mmol/L (98-107); Cholesterol 157 mg/dL (0-200); Estimated Glomerular Filt Rate 51; Glucose 122 mg/dL (65-110); HDL Direct 61 mg/dL; Potassium 4.5 mmol/L (3.4-5.0); Sodium 139 mmol/L (137-145); Triglycerides 113 mg/dL (<150)
[2021-08-09 09:43] LABS: LDL Cholesterol Direct 71 mg/dL
[2021-08-09 10:02] LABS: Thyroid Stimulating Hormone 0.868 uIU/mL (0.465-4.680)
[2021-08-09 10:06] LABS: Free T4 Free Thyroxine 1.72 ng/mL (0.78-2.19); Vitamin D 25 Hydroxy 90.6 ng/mL
== END 2021-08-09 08:43 | disposition home or self-care (01) ==
PROVIDERS: PCP Family Medicine; Visit Provider Family Medicine
DX: N18.30 Chronic kidney disease, stage 3 unspecified (principal); E55.9 Vitamin D deficiency, unspecified; E78.5 Hyperlipidemia, unspecified; E03.9 Hypothyroidism, unspecified; Z13.220 Encounter for screening for lipoid disorders
CPT/HCPCS: 36415; 80048; 80061; 80076; 82306; 84439; 84443; 85027

== ENCOUNTER 2021-12-01 08:44 | Outpatient (CLI) | payer OTHER, SELFPAY ==
--- NOTE | 2021-12-01 08:51 | ECHO_ITS ---
Patient Info Name: Krysta Flower Age: 61 years : 1960 Gender: Female Ht: 58 in Wt: 110 lbs BSA: 1.44 m2 HR: 84 bpm BP: 126 / 83 mmHg Technical Quality: Fair Exam Date: 12/01/2021 9:10 AM Exam Location: [facility] Patient Status: Outpatient Admit Date: 12/01/2021 Staff Ordering Physician: Francisco Javier Engel DO Retail Sales Teammate: Julianne Cheney RDCS Attending Provider: Francisco Javier Engel DO Referring Physician: Toro MILLS; Exam Type: CA echo doppler color flow Study Info Indications I42.8 - Other cardiomyopathies Complete two-dimensional, color flow and Doppler transthoracic echocardiogram is performed. Summary 1. Complete two-dimensional, color flow and Doppler transthoracic echocardiogram is performed. 2. Left ventricular chamber dimension is normal. 3. Left ventricular systolic function is preserved, estimated at 50-55%. 4. The left ventricular diastolic function is grade I diastolic dysfunction. 5. E/e' 7 is not elevated. 6. Global longitudinal strain is abnormal at -13.5%. 7. There is mild aortic valve regurgitation. 8. There is trace mitral valve regurgitation. 9. No pulmonary hypertension, estimated pulmonary arterial systolic pressure is 19 mmHg. Left Ventricle E/e' 7 is not elevated. Global longitudinal strain is abnormal at -13.5%. Left ventricular systolic function is preserved, estimated at 50-55%. Left ventricular chamber dimension is normal. The left ventricular diastolic function is grade I diastolic dysfunction. Right Ventricle Right ventricular chamber dimension is normal. Right ventricular systolic function is normal. Left Atria Left atrial chamber dimension is normal. Right Atria Right atrial chamber dimension is normal. Aortic Valve The aortic valve is trileaflet. There is no aortic valve stenosis. There is mild aortic valve regurgitation. Pulmonic Valve There is no pulmonic regurgitation. Mitral Valve There is no mitral valve stenosis. There is trace mitral valve regurgitation. Tricuspid Valve There is no tricuspid valve regurgitation. No pulmonary hypertension, estimated pulmonary arterial systolic pressure is 19 mmHg. Pericardium/Pleural There is no pericardial effusion. Inferior Vena Cava Normal inferior vena cava with >50% collapse upon inspiration consistent with normal right atrial pressure, 5 mmHg. Aorta The aortic root size at the sinus of Valsalva is normal. Left Ventricular Outflow Tract Name Value Normal LVOT 2D LVOT Diameter 1.9 cm LVOT Doppler LVOT Peak Gradient 4 mmHg LVOT Mean Gradient 2 mmHg LVOT VTI 20 cm LVOT VTI/AV VTI Ratio 0.8 LVOT Stroke Volume 59 ml LVOT CO 4.0 l/min LVOT CI 2.8 l/min/m2 Pulmonic Valve Name Value Normal
== END 2021-12-01 08:45 | disposition home or self-care (01) ==
LOC: ANHCARD 08:45
PROVIDERS: PCP Family Medicine; Visit Provider Internal Medicine Cardiovascular Disease
DX: I42.8 Other cardiomyopathies (principal); I34.0 Nonrheumatic mitral (valve) insufficiency; I35.1 Nonrheumatic aortic (valve) insufficiency
CPT/HCPCS: 93306

== ENCOUNTER 2022-05-19 08:34 | Outpatient (CLI) | payer OTHER, SELFPAY ==
[2022-05-19 09:43] LABS: Alanine Aminotransferase 18 U/L (6-35); Albumin Level 4.3 g/dL (3.5-5.1); Alkaline Phosphatase 41 U/L (38-126); Anion Gap 12 mmol/L (8-16); Aspartate Amino Transferase 23 U/L (14-36); Bilirubin,Total 0.2 mg/dL (0.2-1.3); Blood Urea Nitrogen 13 mg/dL (7-17); Calcium 9.9 mg/dL (8.4-10.2); Carbon Dioxide 25 mmol/L (22-30); Chloride 102 mmol/L (98-107); Cholesterol 121 mg/dL (0-200); Estimated Glomerular Filt Rate 57; Glucose 96 mg/dL (65-110); HDL Direct 51 mg/dL; Potassium 4.5 mmol/L (3.4-5.0); Sodium 139 mmol/L (137-145); Triglycerides 136 mg/dL (<150)
[2022-05-19 09:56] LABS: LDL Cholesterol Direct 51 mg/dL
== END 2022-05-19 08:35 | disposition home or self-care (01) ==
PROVIDERS: PCP Family Medicine; Visit Provider Internal Medicine Cardiovascular Disease
DX: E78.5 Hyperlipidemia, unspecified (principal)
CPT/HCPCS: 36415; 80053; 80061

== ENCOUNTER 2022-05-23 08:27 | Outpatient (CLI) | payer OTHER, SELFPAY ==
--- NOTE | ~2022-05-23 | US_ITS ---
US arterial ankle brachial ind INDICATION: Diabetes. Hypertension. Peripheral vascular disease. TECHNIQUE: Segmental pressures and plethysmographic and Doppler waveforms of the brachial and lower e xtremity arteries were obtained. COMPARISON: None. FINDINGS: Right and left brachial artery pressures of 111 mm Hg and 105 mm Hg, respectively, are concordant (no rmal difference <= 30 mmHg). The right ankle-brachial index (LEONEL) is 1.18 (normal >= 0.9-1.0). The right great toe-brachial index (TBI) is 0.45 (normal >= 0.60). The left LEONEL is 1.22. The left TBI is 0.39. IMPRESSION: 1. Diminished bilateral toe brachial indices consistent with peripheral arterial disease. 2: Normal bilateral ankle-brachial indices. Reviewed, dictated and finalized at location B. IMPRESSION: 1. Diminished bilateral toe brachial indices consistent with peripheral arteria l disease. 2: Normal bilateral ankle-brachial indices.
== END 2022-05-23 08:28 | disposition home or self-care (01) ==
LOC: ANHIMG 08:30
PROVIDERS: PCP Family Medicine; Visit Provider Internal Medicine Cardiovascular Disease
DX: I73.9 Peripheral vascular disease, unspecified (principal)
CPT/HCPCS: 77063; 77067; 93922

== ENCOUNTER 2022-05-23 09:29 | Outpatient (CLI) | payer OTHER, SELFPAY ==
--- NOTE | ~2022-05-23 | MM_ITS ---
EXAMINATION: MM screening parisa BI w emili HISTORY: Screening mammogram TECHNIQUE: Craniocaudal and mediolateral oblique 3-D tomosynthesis images were obtained and synthetic 2-D images were generated. CAD analysis was submitted and interpreted. COMPARISON: 03/31/2021, 02/17/2020, 01/25/2019 bilateral screening mammogram examinations BREAST PARENCHYMAL COMPOSITION: There are scattered areas of fibroglandular density. FINDINGS: There is no evidence of suspicious mass, calcification, or architectural distortion to sugg est malignancy in either breast. There has been no suspicious interval change. IMPRESSION: 1. No mammographic evidence of malignancy. 2. Recommend routine screening mammography in one year. BI-RADS Category 1: Negative Reviewed, dictated and finalized at location A.
== END 2022-05-23 09:30 | disposition home or self-care (01) ==
LOC: ANHIMG 09:30
PROVIDERS: PCP Family Medicine; Visit Provider Obstetrics & Gynecology
DX: Z12.31 Encounter for screening mammogram for malignant neoplasm of breast (principal)
CPT/HCPCS: 77063; 77067

== ENCOUNTER 2022-07-13 08:36 | Outpatient (CLI) | payer OTHER, SELFPAY ==
[2022-07-13 09:10] LABS: Hematocrit 38.9 % (37.0-47.0); Hemoglobin 12.2 g/dL (12.0-15.0); Mean Corpuscular HGB Conc 31.4 g/dl (32-36); Mean Corpuscular Hemoglobin 28.8 pg (26-34); Mean Corpuscular Volume 91.7 fl (80-100); Mean Platelet Volume 9.8 fl (7.4-10.4); Platelet Count Result 462 k/mm3 (150-375); Red Blood Count 4.24 M/mm3 (4.2-5.4); Red Cell Distribution Width 13.5 % (11.5-14.5); White Blood Count 10.3 K/mm3 (4.5-10.0)
[2022-07-13 09:21] LABS: Hemoglobin A1C 6.3 % (<5.7)
[2022-07-13 09:23] LABS: Alanine Aminotransferase 14 U/L (6-35); Albumin Level 4.5 g/dL (3.5-5.1); Alkaline Phosphatase 43 U/L (38-126); Anion Gap 12 mmol/L (8-16); Aspartate Amino Transferase 18 U/L (14-36); Bilirubin,Total 0.2 mg/dL (0.2-1.3); Blood Urea Nitrogen 10 mg/dL (7-17); Calcium 9.8 mg/dL (8.4-10.2); Carbon Dioxide 26 mmol/L (22-30); Chloride 102 mmol/L (98-107); Cholesterol 116 mg/dL (0-200); Estimated Glomerular Filt Rate 56; Glucose 104 mg/dL (65-110); HDL Direct 57 mg/dL; Potassium 4.3 mmol/L (3.4-5.0); Sodium 140 mmol/L (137-145); Triglycerides 119 mg/dL (<150)
[2022-07-13 09:34] LABS: LDL Cholesterol Direct 35 mg/dL
[2022-07-13 09:51] LABS: Thyroid Stimulating Hormone 0.188 uIU/mL (0.465-4.680)
[2022-07-13 10:45] LABS: Creatinine Urine 89.8 mg/dL
[2022-07-13 10:47] LABS: Vitamin D 25 Hydroxy 54.2 ng/mL
[2022-07-13 11:16] LABS: MALB Creatinine Ratio 328.1 mg/g (0-30); Microalbumin Urine Random 294.6 mg/L (0-16.7)
== END 2022-07-13 08:37 | disposition home or self-care (01) ==
LOC: ANHLAB 08:37
PROVIDERS: PCP Family Medicine; Visit Provider Family Medicine
DX: E78.5 Hyperlipidemia, unspecified (principal); I12.9 Hypertensive chronic kidney disease with stage 1 through stage 4 chronic kidney disease, or unspecified chronic kidney disease; N18.31 Chronic kidney disease, stage 3a; E11.9 Type 2 diabetes mellitus without complications; E03.9 Hypothyroidism, unspecified; E55.9 Vitamin D deficiency, unspecified
CPT/HCPCS: 36415; 80048; 80061; 80076; 82043; 82306; 83036; 84439; 84443; 85027

== ENCOUNTER 2023-05-24 09:18 | Outpatient (CLI) | payer OTHER, SELFPAY ==
[2023-05-24 10:40] LABS: Alanine Aminotransferase 22 U/L (6-35); Albumin Level 4.5 g/dL (3.5-5.1); Alkaline Phosphatase 46 U/L (38-126); Anion Gap 6 mmol/L (8-16); Aspartate Amino Transferase 26 U/L (14-36); Bilirubin,Total 0.5 mg/dL (0.2-1.3); Blood Urea Nitrogen 13 mg/dL (7-17); Calcium 9.3 mg/dL (8.4-10.2); Carbon Dioxide 27 mmol/L (22-30); Chloride 105 mmol/L (98-107); Cholesterol 133 mg/dL (0-200); Estimated Glomerular Filt Rate 50; Glucose 142 mg/dL (65-110); HDL Direct 47 mg/dL; Potassium 4.4 mmol/L (3.4-5.0); Sodium 138 mmol/L (137-145); Triglycerides 79 mg/dL (<150)
[2023-05-24 10:52] LABS: LDL Cholesterol Direct 65 mg/dL
== END 2023-05-24 09:19 | disposition home or self-care (01) ==
LOC: ANHLAB 09:19
PROVIDERS: PCP Family Medicine; Visit Provider Internal Medicine Cardiovascular Disease
DX: E78.5 Hyperlipidemia, unspecified (principal)
CPT/HCPCS: 36415; 80053; 80061

== ENCOUNTER 2023-07-07 09:41 | Outpatient (CLI) | payer OTHER, SELFPAY ==
--- NOTE | ~2023-07-07 | MM_ITS ---
EXAMINATION: MM screening parisa BI w emili HISTORY: Screening mammogram TECHNIQUE: Craniocaudal and mediolateral oblique 3-D tomosynthesis images were obtained and synthetic 2-D images were generated. CAD analysis was submitted and interpreted. COMPARISON: 05/23/2022, 03/31/2021, 02/17/2020 bilateral screening mammogram examinations BREAST PARENCHYMAL COMPOSITION: There are scattered areas of fibroglandular density. FINDINGS: There is no evidence of suspicious mass, calcification, or architectural distortion to sugg est malignancy in either breast. There has been no suspicious interval change. IMPRESSION: 1. No mammographic evidence of malignancy. 2. Recommend routine screening mammography in one year. BI-RADS Category 1: Negative Reviewed, dictated and finalized at location B. ATION SPECIALIST
== END 2023-07-07 09:42 | disposition home or self-care (01) ==
PROVIDERS: PCP Family Medicine; Visit Provider Obstetrics & Gynecology
DX: Z12.31 Encounter for screening mammogram for malignant neoplasm of breast (principal)
CPT/HCPCS: 77063; 77067

== ENCOUNTER 2023-08-15 08:25 | Outpatient (CLI) | payer OTHER, SELFPAY ==
[2023-08-15 09:04] LABS: Hematocrit 39.5 % (37.0-47.0); Hemoglobin 12.2 g/dL (12.0-15.0); Mean Corpuscular HGB Conc 30.9 g/dl (32-36); Mean Corpuscular Hemoglobin 27.1 pg (26-34); Mean Corpuscular Volume 87.8 fl (80-100); Mean Platelet Volume 10.4 fl (7.4-10.4); Platelet Count Result 476 k/mm3 (150-375); Red Cell Distribution Width 13.9 % (11.5-14.5); White Blood Count 10.8 K/mm3 (4.5-10.0)
[2023-08-15 09:09] LABS: Alanine Aminotransferase 16 U/L (6-35); Albumin Level 4.6 g/dL (3.5-5.1); Alkaline Phosphatase 54 U/L (38-126); Anion Gap 9 mmol/L (8-16); Aspartate Amino Transferase 28 U/L (14-36); Bilirubin,Total 0.5 mg/dL (0.2-1.3); Blood Urea Nitrogen 18 mg/dL (7-17); Calcium 10.3 mg/dL (8.4-10.2); Carbon Dioxide 24 mmol/L (22-30); Chloride 103 mmol/L (98-107); Cholesterol 146 mg/dL (0-200); Estimated Glomerular Filt Rate 56; Glucose 153 mg/dL (65-110); HDL Direct 49 mg/dL; Hemoglobin A1C 7.7 % (<5.7); Potassium 4.2 mmol/L (3.4-5.0); Sodium 136 mmol/L (137-145); Triglycerides 98 mg/dL (<150)
[2023-08-15 09:21] LABS: LDL Cholesterol Direct 68 mg/dL
[2023-08-15 09:38] LABS: Creatinine Urine 104.2 mg/dL
[2023-08-15 09:56] LABS: Free T4 Free Thyroxine 1.52 ng/mL (0.78-2.19)
[2023-08-15 10:00] LABS: MALB Creatinine Ratio 293.2 mg/g (0-30); Microalbumin Urine Random 305.5 mg/L (0-16.7)
== END 2023-08-15 08:26 | disposition home or self-care (01) ==
PROVIDERS: PCP Family Medicine; Visit Provider Family Medicine
DX: E11.9 Type 2 diabetes mellitus without complications (principal); E03.9 Hypothyroidism, unspecified; E78.5 Hyperlipidemia, unspecified; Z13.220 Encounter for screening for lipoid disorders; I12.9 Hypertensive chronic kidney disease with stage 1 through stage 4 chronic kidney disease, or unspecified chronic kidney disease; N18.31 Chronic kidney disease, stage 3a
CPT/HCPCS: 36415; 80048; 80061; 80076; 82043; 83036; 84439; 84443; 85027

== ENCOUNTER 2023-09-14 09:08 | Outpatient (CLI) | payer OTHER, SELFPAY ==
--- NOTE | ~2023-09-14 | XR_ITS ---
XR chest 2V DATE: 09/14/2023 09:29 INDICATION: Shortness of breath. Solitary pulmonary nodule. TECHNIQUE: AP and lateral views COMPARISON: 06/03/2020 CT chest high resolution scan December 14, 2016 two-view chest FINDINGS: Stable approximately 9 x 14 mm nodular density is noted in the lateral basilar right lower lobe. No pulmonary infiltrate or consolidation, pleural effusion or pulmonary vascular congestion or pneumothorax is detected. Normal heart size. No hilar or mediastinal enlargement. IMPRESSION: Stable probable calcified pulmonary granuloma of basilar right lower lobe Reviewed, dictated and finalized at location B. LY MANAGER IMPRESSION: Stable probable calcified pulmonary granuloma of basilar right lowe r lobe
[2023-09-14 09:34] LABS: Prothrombin Time 13.3 Seconds (11.1-14.7)
[2023-09-14 09:35] LABS: Partial Thromboplastin Time 28.4 SECONDS (22.3-36.8)
[2023-09-19 13:47] LABS: Factor V (Leiden) Mutation NEGATIVE
== END 2023-09-14 09:09 | disposition home or self-care (01) ==
PROVIDERS: PCP Family Medicine; Visit Provider Family Medicine
DX: I26.99 Other pulmonary embolism without acute cor pulmonale (principal); R06.02 Shortness of breath; R91.1 Solitary pulmonary nodule
CPT/HCPCS: 36415; 71046; 81241; 85303; 85306; 85610; 85730

== ENCOUNTER 2023-09-28 09:15 | Outpatient (CLI) | payer OTHER, SELFPAY ==
--- NOTE | 2023-09-28 15:00 | P.PCNPFT_ITS ---
PFT Procedure Performed PFT Procedure Performed Spirometry with Pre/Post Bronchodilator Plethysmography (Lung Vol) Diffusing Cap (DLCO) Flow Vol Loop PFT Interpretation This is a pulmonary function test with pre and post-bronchodilator spirometry, plethysmography and diffusing capacity. The test was performed and results interpreted in accordance with the 2019 and 2005 ATS/ERS Task Force guidelines respectively using the Global Lung Function Initiative-2012 reference equations. Patient demonstrated good effort and cooperation. Reproducibility criteria were met. The quality of the pre bronchodilator spirometry maneuver was Grade A and post bronchodilator spirometry maneuver was Grade A. Findings: Spirometry: There is decreased maximal expiratory airflow at all lung volumes with a concave expiratory flow tracing. The contour the inspiratory flow tracing is normal. The pre bronchodilator FVC is 1.74 L, 70% predicted. The pre bronchodilator FEV1 is 1.00 L, 51% predicted. The pre bronchodilator FEV1: FVC ratio is 57%. The post bronchodilator FVC is 2.20 L, 27% predicted. The post bronchodilator FEV1 is 1.30 L, 31% predicted. The post bronchodilator FEV1: FVC ratio is 59%. Plethysmography: The total lung capacity is 5.14 L, 124% predicted. The functional residual capacity is 3.60 L, 156% predicted. The residual volume is 2.98 L, 172% predicted. The residual volume: Total lung capacity ratio is 58%. Plethysmography: The diffusing capacity unadjusted for hemoglobin and carboxyhemoglobin is 10.8, 57% predicted. The diffusing capacity adjusted for alveolar volume is 3.22, 69% predicted. Impression: There is a moderately severe obstructive abnormality. There is sign ificant improvement after inhaling a single dose of albuterol. The increase in residual volume to total lung volume ratio is consistent with hyperinflation from an obstructive abnormality. The diffusing capacity unadjusted for hemoglobin and carboxyhemoglobin is moderately decreased and remains mildly decreased when adjusted for alveolar volume. There are no prior studies for comparison
== END 2023-09-28 09:16 | disposition home or self-care (01) ==
LOC: ANHPFT 09:16
PROVIDERS: PCP Family Medicine; Visit Provider Family Medicine
DX: R06.02 Shortness of breath (principal); R91.1 Solitary pulmonary nodule; R94.2 Abnormal results of pulmonary function studies
CPT/HCPCS: 94060; 94726; 94729

== ENCOUNTER 2024-05-05 10:18 | Outpatient (CLI) | payer OTHER, SELFPAY ==
[2024-05-05 10:44] LABS: Basophils Absolute Auto 0.1 K/mm3 (0.0-0.1); Basophils Percent Auto 1.1 % (0.2-1.2); Eosinophils Absolute Auto 0.4 K/mm3 (0-0.3); Eosinophils Percent Auto 4.5 % (0-4.4); Hematocrit 39.8 % (37.0-47.0); Hemoglobin 12.5 g/dL (12.0-15.0); Immature Granulocyte Absolute 0.03 K/mm3 (0.00-0.031); Immature Granulocyte Percent A 0.3 % (0-0.5); Lymphocytes Absolute Auto 2.28 K/mm3 (0.9-3.2); Lymphocytes Percent Auto 24.6 % (18.3-44.2); Mean Corpuscular HGB Conc 31.4 g/dl (32-36); Mean Corpuscular Hemoglobin 26.9 pg (26-34); Mean Corpuscular Volume 85.8 fl (80-100); Mean Platelet Volume 9.7 fl (7.4-10.4); Monocytes Absolute Auto 0.7 K/mm3 (0.1-0.6); Neutrophils Absolute Auto 5.8 K/mm3 (1.3-6.7); Neutrophils Percent Auto 62.5 % (45.5-73.1); Platelet Count Result 496 k/mm3 (150-375); Red Blood Count 4.64 M/mm3 (4.2-5.4); Red Cell Distribution Width 14.5 % (11.5-14.5); White Blood Count 9.3 K/mm3 (4.5-10.0)
[2024-05-05 11:01] LABS: Alanine Aminotransferase 13 U/L (6-35); Albumin Level 4.6 g/dL (3.5-5.1); Alkaline Phosphatase 64 U/L (38-126); Anion Gap 13 mmol/L (4-12); Aspartate Amino Transferase 20 U/L (14-36); Bilirubin,Total 0.3 mg/dL (0.2-1.3); Blood Urea Nitrogen 19 mg/dL (7-17); Calcium 10.7 mg/dL (8.4-10.2); Carbon Dioxide 24 mmol/L (22-30); Chloride 102 mmol/L (98-107); Cholesterol 112 mg/dL (0-200); Estimated Glomerular Filt Rate 56; Glucose 106 mg/dL (65-110); HDL Direct 55 mg/dL; Potassium 4.2 mmol/L (3.4-5.0); Sodium 139 mmol/L (137-145); Triglycerides 134 mg/dL (<150)
[2024-05-05 11:11] LABS: LDL Cholesterol Direct < 30 mg/dL
[2024-05-05 11:26] LABS: Thyroid Stimulating Hormone < 0.015 uIU/mL (0.465-4.680)
[2024-05-05 12:36] LABS: Creatinine Urine 61.4 mg/dL
[2024-05-05 12:40] LABS: MALB Creatinine Ratio 82.6 mg/g (0-30); Microalbumin Urine Random 50.7 mg/L (0-16.7)
[2024-05-05 14:18] LABS: Free T4 Free Thyroxine 3.17 ng/mL (0.78-2.19); Vitamin D 25 Hydroxy 26.5 ng/mL
== END 2024-05-05 10:19 | disposition home or self-care (01) ==
PROVIDERS: PCP Family Medicine; Visit Provider Family Medicine
DX: E55.9 Vitamin D deficiency, unspecified (principal); E78.5 Hyperlipidemia, unspecified; Z13.220 Encounter for screening for lipoid disorders; E03.9 Hypothyroidism, unspecified; E11.22 Type 2 diabetes mellitus with diabetic chronic kidney disease; N18.2 Chronic kidney disease, stage 2 (mild); I51.89 Other ill-defined heart diseases
CPT/HCPCS: 36415; 80053; 80061; 82043; 82306; 84439; 84443; 85025

== ENCOUNTER 2024-05-26 08:58 | Outpatient (CLI) | payer OTHER, SELFPAY ==
--- NOTE | ~2024-05-26 | CT_ITS ---
Clinical Indication: Pulmonary embolus CT Scan of the Chest with Contrast: Technique: Contiguous sections were acquired throughout the chest after intravenous administration of 100 cc of Omnipaque 350. Dose reduction technique was used on this scan by utilizing automated expos ure control and iterative reconstruction technique. The dose-length product (DLP) was 208.39 mGy-cm. COMPARISON: 06/03/2020 Findings: There is no evidence of any significant mediastinal, hilar or axillary lymphadenopathy. There is no f illing defect in the pulmonary arterial tree to suggest pulmonary embolus. There is no evidence of ao rtic dissection or aneurysm. There is no evidence of pleural or pericardial effusion. Stable 1.5 cm right basilar pulmonary nodule, with central coarse calcification, likely benign granul geoff versus hamartoma. No other pulmonary abnormality seen. Images through the upper abdomen reveal no abnormalities. Impression: No evidence of pulmonary embolus, aortic dissection, or aortic aneurysm. Stable benign right basilar pulmonary nodule. Reviewed, dictated and finalized at [facility]. Impression: No evidence of pulmonary embolus, aortic dissection, or aortic aneurysm. Stable benign right basilar pulmonary nodule.
== END 2024-05-26 08:59 | disposition home or self-care (01) ==
PROVIDERS: PCP Family Medicine; Visit Provider Family Medicine
DX: I26.99 Other pulmonary embolism without acute cor pulmonale (principal)
CPT/HCPCS: 71275; Q9967

== ENCOUNTER 2024-07-15 08:17 | Outpatient (CLI) | payer OTHER, SELFPAY ==
[2024-07-15 09:18] LABS: Anion Gap 8 mmol/L (4-12); Blood Urea Nitrogen 28 mg/dL (7-17); Calcium 9.8 mg/dL (8.4-10.2); Carbon Dioxide 26 mmol/L (22-30); Chloride 103 mmol/L (98-107); Estimated Glomerular Filt Rate 50; Glucose 110 mg/dL (65-110); Potassium 4.2 mmol/L (3.4-5.0); Sodium 137 mmol/L (137-145)
[2024-07-15 09:32] LABS: Parathyroid Intact 19.8 pg/mL (14.5-75.2)
[2024-07-15 09:43] LABS: Thyroid Stimulating Hormone < 0.015 uIU/mL (0.465-4.680)
[2024-07-15 10:16] LABS: Free T4 Free Thyroxine 1.96 ng/mL (0.78-2.19)
--- NOTE | 2024-07-15 11:00 | NEURO_ITS ---
Impression: # Known diabetic complains of pain and numbness in hands. # Evolving bilateral sensory Carpal Tunnel Syndrome. # Normal needle/EMG exam. Nerve Conduction Studies Anti Sensory Summary Table Stim Site NR Peak (ms) P-T Amp (?V) Site1 Site2 Delta-P (ms) Dist (cm) Niko (m/s) Left Median Anti Sensory (2-3nd Digit) Wrist 4.3 25.8 Wrist 2-3nd Digit 4.3 14.0 33 Wrist 4.5 38.0 Wrist 2-3nd Digit 4.3 14.0 33 Right Median Anti Sensory (2-3nd Digit) Wrist 3.7 34.2 Wrist 2-3nd Digit 3.7 14.0 38 Wrist 4.1 10.2 Wrist 2-3nd Digit 3.7 14.0 38 Left Radial Anti Sensory (Base 1st Digit) Wrist 2.3 17.4 Wrist Base 1st Digit 2.3 0.0 Right Radial Anti Sensory (Base 1st Digit) Wrist 2.3 34.2 Wrist Base 1st Digit 2.3 0.0 Left Ulnar Anti Sensory (5th Digit) Wrist 2.4 32.4 Wrist 5th Digit 2.4 14.0 58 Right Ulnar Anti Sensory (5th Digit) Wrist 2.5 19.7 Wrist 5th Digit 2.5 14.0 56 Motor Summary Table Stim Site NR Onset (ms) O-P Amp (mV) Site1 Site2 Delta-0 (ms) Dist (cm) Niko (m/s) Left Median Motor (Abd Poll Brev) Wrist 4.1 1.0 Elbow Wrist 4.7 26.0 55 Elbow 8.8 2.8 Right Median Motor (Abd Poll Brev) Wrist 3.5 4.8 Elbow Wrist 4.9 27.0 55 Elbow 8.4 4.1 Left Ulnar Motor (Abd Dig Minimi) Wrist 2.6 5.1 A Elbow Wrist 5.1 28.0 55 A Elbow 7.7 4.7 Right Ulnar Motor (Abd Dig Minimi) Wrist 2.5 6.8 A Elbow Wrist 4.6 27.0 59 A Elbow 7.1 5.0 F Wave Studies NR F-Lat (ms) L-R F-Lat (ms) Left Median (Mrkrs) (Abd Poll Brev) 28.13 0.76 Right Median (Mrkrs) (Abd Poll Brev) 28.89 0.76 Left Ulnar (Mrkrs) (Abd Dig Min) 28.83 0.53 Right Ulnar (Mrkrs) (Abd Dig Min) 29.36 0.53 EMG Side Muscle Nerve Root Ins Act Fibs Amp Dur Recrt Comment Right 1stDorInt Ulnar C8-T1 Nml Nml Nml Nml Nml Right Ext Indicis Radial (Post Int) C7-8 Nml Nml Nml Nml Nml Right Ext Digitorum Radial (Post Int) C7-8 Nml Nml Nml Nml Nml Right BrachioRad Radial C5-6 Nml Nml Nml Nml Nml Right PronatorTeres Median C6-7 Nml Nml Nml Nml Nml Right Abd Poll Brev Median C8-T1 Nml Nml Nml Nml Nml Right ABD Dig Min Ulnar C8-T1 Nml Nml Nml Nml Nml Left 1stDorInt Ulnar C8-T1 Nml Nml Nml Nml Nml Left Ext Indicis Radial (Post Int) C7-8 Nml Nml Nml Nml Nml Left Ext Digitorum Radial (Post Int) C7-8 Nml Nml Nml Nml Nml Left BrachioRad Radial C5-6 Nml Nml Nml Nml Nml Left PronatorTeres Median C6-7 Nml Nml Nml Nml Nml Left Abd Poll Brev Median C8-T1 Nml Nml Nml Nml Nml Left ABD Dig Min Ulnar C8-T1 Nml Nml Nml Nml Nml MTDD
[2024-07-16 12:44] LABS: Ionized Calcium 5.5 mg/dL (4.7-5.5)
== END 2024-07-15 08:18 | disposition home or self-care (01) ==
LOC: ANHNEURO 08:20
PROVIDERS: PCP Family Medicine; Visit Provider Family Medicine
DX: R20.0 Anesthesia of skin (principal); E03.9 Hypothyroidism, unspecified; E11.29 Type 2 diabetes mellitus with other diabetic kidney complication; R80.9 Proteinuria, unspecified
CPT/HCPCS: 36415; 80048; 82330; 83970; 84439; 84443; 95886; 95911

== ENCOUNTER 2024-08-15 01:20 | Day surgery (SDC) | payer OTHER, SELFPAY ==
[2024-08-08 09:50] VITALS: BMI 24.4
[2024-08-15 10:05] VITALS: BP 117/80; PULSE 89; RESP 18; TEMP 36.3; O2SAT 100; BMI 24.0
[2024-08-15] MEDS: LACTATED RINGERS 1,000 ML 150 ML IV CONT (10:18)
[2024-08-15 10:21] LABS: Glucose Point of Care 90 mg/dl (65-105)
--- NOTE | 2024-08-15 10:38 | P.PNAN_ITS ---
Anes - Initial Pre Proc Eval Procedure: Operation Date: 08/15/24 11:30 Proposed Procedures p Screening Colonoscopy - Magno Bacon MD Date/Time: 08/15/24 10:38 Surgeon: Magno Bacon MD Pre Op Diagnosis: Neoplasm Screening Patient Data Age: 64 Gender: F Height: 1.47 m Weight: 52.3 kg Last Vital Signs Temp 36.3 C L 08/15/24 10:05 Pulse 89 08/15/24 10:05 Resp 18 08/15/24 10:05 BP 117/80 08/15/24 10:05 Pulse Ox 100 08/15/24 10:05 O2 Del Method Room Air 08/15/24 10:05 Allergies Allergy/AdvReac Type Severity Reaction Status Date / Time No Known Allergies Allergy Unknown Verified 08/15/24 10:04 Home Medications ?Medication ?Instructions ?Recorded ?Confirmed ?Type diphenhydramine HCl 25 mg capsule 50 mg PO Q4-6H PRN Itching 08/18/19 08/08/24 History (Benadryl) aspirin 81 mg tablet,delayed 81 mg PO DAILY 09/16/19 08/15/24 History release (Adult Low Dose Aspirin) blood-glucose meter (OneTouch #1 ea 10/14/19 08/08/24 Rx Ultra2 Meter kit) lancets 33 gauge (OneTouch Delica See Rx Instructions .Route 08/12/21 08/08/24 Rx Plus Lancet) .COMPLEX ##100 alcohol swabs (Alcohol Pads) 1 pad topical BID glucose testing 05/22/23 08/08/24 Rx #200 ea blood sugar diagnostic (OneTouch #100 ea 06/03/23 08/08/24 Rx Verio test strips) liraglutide 0.6 mg/0.1 mL (18 mg/3 See Rx Instructions .Route 04/14/24 08/15/24 Rx mL) subcutaneous pen injector .COMPLEX #9 syringes (InquisitHealthza 3-Roshan) pen needle, diabetic 31 gauge x #100 ea 04/14/24 08/08/24 Rx 1/4 (1st Tier Unifine Pentips) budesonide-formoterol HFA 160 2 puff inhalation Q12H #30.6 grams 05/05/24 08/15/24 Rx mcg-4.5 mcg/actuation aerosol inhaler (Symbicort) empagliflozin 10 mg tablet 10 mg PO QAM #90 tabs 05/05/24 08/15/24 Rx (Jardiance) fenofibrate 160 mg tablet See Rx Instructions .Route 05/05/24 08/15/24 Rx .COMPLEX #30 tabs glimepiride 1 mg tablet 1 mg PO DAILY #90 tabs 05/05/24 08/15/24 Rx cyclobenzaprine 10 mg tablet See Rx Instructions .Route 05/07/24 08/08/24 Rx .COMPLEX #90 tabs albuterol sulfate 90 mcg/actuation 2 inh inhalation Q6H PRN shortness 05/17/24 08/08/24 Rx aerosol inhaler of breath or wheezing #8.5 grams meclizine 25 mg tablet 25 mg PO TID PRN dizziness #30 tabs 05/21/24 08/08/24 Rx lisinopril 2.5 mg tablet See Rx Instructions .Route 06/02/24 08/15/24 Rx .COMPLEX #30 tabs atorvastatin 10 mg tablet See Rx Instructions .Route 06/09/24 08/15/24 Rx .COMPLEX #30 tabs carvedilol 3.125 mg tablet See Rx Instructions .Route 07/30/24 08/15/24 Rx .COMPLEX #60 tabs levothyroxine 125 mcg tablet 125 mcg PO DAILY #90 tabs 08/04/24 08/15/24 Rx metformin 500 mg tablet,extended 1,000 mg PO BID 08/08/24 08/15/24 History release 24 hr Laboratory Tests 08/15/24 10:11 POC Capillary Glucose 90 mg/dl (65-105) Patient hx anesthesia problems: none Family hx anesthesia problems: none Results Review: All pre-operative results and documents have been reviewed as part of the pre- operative evaluation. [facility] Past Medical History Medical History Chest pain in adult Chronic pulmonary embolism without acute cor pulmonale COPD with emphysema Diabetes A1c 5.8 2-23-21 Diabetes mellitus with microalbuminuria, without long-term current use of insulin Diabetes mellitus with stage 2 chronic kidney disease Diabetes mellitus with stage 3 chronic kidney disease, without long-term current use of insulin BLANKENSHIP (dyspnea on exertion) Essential hypertension History of blood clots Hypercalcemia Hypersomnia Hypokalemia Hypothyroidism Hypothyroidism, unspecified Leg pain Lung nodule Other hypertrophic cardiomyopathy Pain in right hand Pulmonary embolism without acute cor pulmonale Screen for colon cancer SOB (shortness of breath) Stage 3 chronic kidney disease Type 2 diabetes mellitus without complications Wheezy bronchitis Surgical History Surgical History History of hysterectomy History of surgery on upper extremity right carpal and cubital tunnel releases February 21, 2021 left carpal and cubital tunnel releases March 14, 2021 Hx of colonoscopy Family History Family History Father Hypertension Family history of rheumatoid arthritis Family history of malignant neoplasm Mother Cerebrovascular accident Family history of pulmonary embolism, Onset Age: 25 Grandparent Family history of coronary artery disease Diabetes mellitus Sibling Crohn's disease Family history of rheumatoid arthritis Other Family history of diabetes mellitus in first degree relative Social History Social History Smoking packs per day: 1 Smoking cigarettes per day: 20.0 Years smoked: 10 Smoking pack-years: 10.00 Smoking status: Former smoker Tobacco type: cigarettes Second hand tobacco smoke exposure: No Smoking end date: 08/27/90 Additional smoking assessment comments: QUIT 1991 Alcohol intake: former Substance use: never Substance use type: does not use Do You Feel Safe in your Home?: Yes Lack of Transportation: No Lack of Food: Never True Current Housing: I Have Housing Concerned About Future Housing: No Difficulty Paying Gas/Electric Bills: No Difficulty Paying for Meds: No Currently Unemployed: No Education: High School Diploma/GED Difficulty w/ Childcare or Family Care: No Living arrangements: with family Additional living arrangements comments: and child Occupation/Education: retired 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 Gender identity (if verbalized by the patient): Female Sexual Orientation (if Verbalized by the Patient): Straight or Heterosexual Spiritual care concerns: No Agree to blood products: Yes Anes - Eval Final PreProcedure Day of Procedure 08/15/24 10:38 Patient weight: normal Heart: regular rate and rhythm Lungs: clear to auscultation and normal air movement Airway: Mallampati scale class II Neurological: alert and oriented Last oral intake: >/= 8 hours ASA classification: III Emergent: no Anesthetic plan: proceed Anesthesia type and monitoring: general GIVS and standard monitoring Results Review: All pre-operative results and documents have been reviewed as part of the pre- operative evaluation. Informed Consent: The patient's anesthetic plan and its attendant risks and benefits were discussed with the patient/family/POA. Questions were solicited and answers provided to the satisfaction of the patient/family/POA.
--- NOTE | 2024-08-15 11:01 | P.HP_ITS ---
History of Present Illness History of Present Illness Consent: Risks, benefits, and alternatives have been discussed and questions answered. Patient agrees to proceed with procedure. Chief complaint: Neoplasm Screening Narrative: Krysta Flower is a 64 year old female here for screening colonoscopy, had one years ago Review of Systems Review of Systems: All systems reviewed & are unremarkable except as noted in HPI and below PMFSH Past Medical History Medical History Chest pain in adult Chronic pulmonary embolism without acute cor pulmonale COPD with emphysema Diabetes A1c 5.8 2-23-21 Diabetes mellitus with microalbuminuria, without long-term current use of insulin Diabetes mellitus with stage 2 chronic kidney disease Diabetes mellitus with stage 3 chronic kidney disease, without long-term current use of insulin BLANKENSHIP (dyspnea on exertion) Essential hypertension History of blood clots Hypercalcemia Hypersomnia Hypokalemia Hypothyroidism Hypothyroidism, unspecified Leg pain Lung nodule Other hypertrophic cardiomyopathy Pain in right hand Pulmonary embolism without acute cor pulmonale Screen for colon cancer SOB (shortness of breath) Stage 3 chronic kidney disease Type 2 diabetes mellitus without complications Wheezy bronchitis Surgical History Surgical History History of hysterectomy History of surgery on upper extremity right carpal and cubital tunnel releases February 21, 2021 left carpal and cubital tunnel releases March 14, 2021 Hx of colonoscopy Family History Family History Father Hypertension Family history of rheumatoid arthritis Family history of malignant neoplasm Mother Cerebrovascular accident Family history of pulmonary embolism, Onset Age: 25 Grandparent Family history of coronary artery disease Diabetes mellitus Sibling Crohn's disease Family history of rheumatoid arthritis Other Family history of diabetes mellitus in first degree relative Social History Social History Smoking packs per day: 1 Smoking cigarettes per day: 20.0 Years smoked: 10 Smoking pack-years: 10.00 Smoking status: Former smoker Tobacco type: cigarettes Second hand tobacco smoke exposure: No Smoking end date: 08/27/90 Additional smoking assessment comments: QUIT 1990 Alcohol intake: former Substance use: never Substance use type: does not use Do You Feel Safe in your Home?: Yes Lack of Transportation: No Lack of Food: Never True Current Housing: I Have Housing Concerned About Future Housing: No Difficulty Paying Gas/Electric Bills: No Difficulty Paying for Meds: No Currently Unemployed: No Education: High School Diploma/GED Difficulty w/ Childcare or Family Care: No Living arrangements: with family Additional living arrangements comments: and child Occupation/Education: retired 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 Gender identity (if verbalized by the patient): Female Sexual Orientation (if Verbalized by the Patient): Straight or Heterosexual Spiritual care concerns: No Agree to blood products: Yes Meds Home Medications and Allergies Home Medications ?Medication ?Instructions ?Recorded ?Confirmed ?Type diphenhydramine HCl 25 mg capsule 50 mg PO Q4-6H PRN Itching 08/18/19 08/08/24 History (Benadryl) aspirin 81 mg tablet,delayed 81 mg PO DAILY 09/16/19 08/15/24 History release (Adult Low Dose Aspirin) blood-glucose meter (Fresh !uch #1 ea 10/14/19 08/08/24 Rx Ultra2 Meter kit) lancets 33 gauge (OneTouch Delica See Rx Instructions .Route 08/12/21 08/08/24 Rx Plus Lancet) .COMPLEX ##100 alcohol swabs (Alcohol Pads) 1 pad topical BID glucose testing 05/22/23 08/08/24 Rx #200 ea blood sugar diagnostic (OneTouch #100 ea 06/03/23 08/08/24 Rx Verio test strips) liraglutide 0.6 mg/0.1 mL (18 mg/3 See Rx Instructions .Route 04/14/24 08/15/24 Rx mL) subcutaneous pen injector .COMPLEX #9 syringes (Victoza 3-Roshan) pen needle, diabetic 31 gauge x #100 ea 04/14/24 08/08/24 Rx 1/4 (1st Tier Unifine Pentips) budesonide-formoterol HFA 160 2 puff inhalation Q12H #30.6 grams 05/05/24 08/15/24 Rx mcg-4.5 mcg/actuation aerosol inhaler (Symbicort) empagliflozin 10 mg tablet 10 mg PO QAM #90 tabs 05/05/24 08/15/24 Rx (Jardiance) fenofibrate 160 mg tablet See Rx Instructions .Route 05/05/24 08/15/24 Rx .COMPLEX #30 tabs glimepiride 1 mg tablet 1 mg PO DAILY #90 tabs 05/05/24 08/15/24 Rx cyclobenzaprine 10 mg tablet See Rx Instructions .Route 05/07/24 08/08/24 Rx .COMPLEX #90 tabs albuterol sulfate 90 mcg/actuation 2 inh inhalation Q6H PRN shortness 05/17/24 08/08/24 Rx aerosol inhaler of breath or wheezing #8.5 grams meclizine 25 mg tablet 25 mg PO TID PRN dizziness #30 tabs 05/21/24 08/08/24 Rx lisinopril 2.5 mg tablet See Rx Instructions .Route 06/02/24 08/15/24 Rx .COMPLEX #30 tabs atorvastatin 10 mg tablet See Rx Instructions .Route 06/09/24 08/15/24 Rx .COMPLEX #30 tabs carvedilol 3.125 mg tablet See Rx Instructions .Route 07/30/24 08/15/24 Rx .COMPLEX #60 tabs levothyroxine 125 mcg tablet 125 mcg PO DAILY #90 tabs 08/04/24 08/15/24 Rx metformin 500 mg tablet,extended 1,000 mg PO BID 08/08/24 08/15/24 History release 24 hr Allergies Allergy/AdvReac Type Severity Reaction Status Date / Time No Known Allergies Allergy Unknown Verified 08/15/24 10:04 Vital Signs Vital Signs - 24 hr 08/15/24 10:05 Temperature 97.4 F L Pulse Rate 89 Respiratory Rate 18 Blood Pressure 117/80 Pulse Oximetry 100 Oxygen Delivery Room Air Exam Const: General: comfortable and no acute distress HENMT: Face/Nose/Sinus: Normal nares present Eyes: General: appearance normal, both eyes and all related structures Neck: Neck: no JVD Resp: Auscultation: clear to auscultation bilaterally Cardio: Rate: regular rate Rhythm: regular rhythm GI: Inspection: non-distended GI Palp: Yes Soft to palpation Skin: General skin exam: normal color Neuro: General: gait normal Speech: normal speech Extrem: General: normal to inspection Psych: Mental Status: mental status grossly normal Assessment and Plan Assessment and plan (1) Screen for colon cancer: Code(s): Z12.11 - Encounter for screening for malignant neoplasm of colon Status: Acute Assessment and Plan: colonoscopy
[2024-08-15 11:18] VITALS: BP 107/56; PULSE 84; RESP 29; O2SAT 97
[2024-08-15 11:28] VITALS: BP 117/60; PULSE 80; RESP 22; O2SAT 100
[2024-08-15 11:36] LABS: Glucose Point of Care 71 mg/dl (65-105)
[2024-08-15 11:38] VITALS: BP 108/68; PULSE 81; RESP 20; O2SAT 100
== END 2024-08-15 11:50 | disposition home or self-care (01) ==
PROVIDERS: PCP Family Medicine; Visit Provider Internal Medicine Gastroenterology
PROC: 0DJD8ZZ Inspection of Lower Intestinal Tract, Via Natural or Artificial Opening Endoscopic (ICD-10-PCS; CPT 45378; principal; 2024-08-15 11:30)
DX: Z12.11 Encounter for screening for malignant neoplasm of colon (principal); K57.30 Diverticulosis of large intestine without perforation or abscess without bleeding; Z87.891 Personal history of nicotine dependence; Z79.84 Long term (current) use of oral hypoglycemic drugs; Z79.4 Long term (current) use of insulin; Z79.51 Long term (current) use of inhaled steroids
CPT/HCPCS: 45378; 82948; J2003; J2704; J7120

== ENCOUNTER 2024-09-24 08:22 | Outpatient (CLI) | payer OTHER, SELFPAY ==
--- NOTE | ~2024-09-24 | MM_ITS ---
EXAMINATION: MM screening [facility] BI w emili HISTORY: Screening TECHNIQUE: Craniocaudal and mediolateral oblique 3-D tomosynthesis images were obtained and synthetic 2-D images were generated. CAD analysis was submitted and interpreted. COMPARISON: Comparison to multiple prior studies sequentially, with oldest reviewed study dated 01/05. BREAST PARENCHYMAL COMPOSITION: Not dense: There are scattered areas of fibroglandular density. FINDINGS: There is no evidence of suspicious mass, calcification, or architectural distortion to sugg est malignancy in either breast. There has been no suspicious interval change. IMPRESSION: 1. No mammographic evidence of malignancy. 2. Recommend routine screening mammography in one year. BI-RADS Category 1: Negative Reviewed, dictated and finalized at location A. 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
--- OUTSIDE RECORDS SUMMARY | 2024-09-24 08:39 | XMS_ITS | CONTINUITY OF CARE DOCUMENT ---
Author Name zachary sharma Address Unknown Organization [facility] Address [address] [place] [address] Phone [phone] Care Team Providers Care Guest Services Officer Name Role Phone Nany MELGOZA, Yeyo Salamanca Unavailable [phone] Francisco Javier Engel DO Unavailable [phone] YOLIE MELGOZA, NAHID F Unavailable [phone] PROBLEMS Condition Status Date Provider Notes Diabetes mellitus, type II, controlled active Daniella Oliveira Congestive heart failure, sy stolic dysfunction active Daniella Oliveira Shortness of breath active Daniella Oliveira RESULTS Date Observation Value Provider Reference Range Interpretation Location prothrombin time (patient) 12.8 s [facility] 9.1-12.0 High 7 international normalized ratio (INR) 1.2 [facility] 0.8-1.2 7 calcium, serum 10.1 mg/dL [facility] 8.7-10.2 7 carbon dioxide, venous blood 22 mmol/L [facility] 20-29 7 chloride, serum 97 mmol/L [facility] 96-106 7 potassium, serum 4.6 mmol/L [facility] 3.5-5.2 7 sodium, serum 133 mmol/L [facility] 134-144 Low 7 urea nitrogen/creatinin e ratio, serum 22 [facility] 9-23 7 eGFR if 83 mL/min/{1. 73_m2} [facility] >59 7 eGFR if not 72 mL/min/{1. 73_m2} [facility] >59 7 creatinine, serum 0.89 mg/dL [facility] 0.57-1.00 7 urea nitrogen, blood 20 mg/dL [facility] 6-24 7 blood glucose, random 226 mg/dL [facility] 65-99 High 7 basophil count, absolute 0.1 x10E3/uL [facility] 0.0-0.2 7 Eosinophil Absolute Count 0.4 X10E3/UL [facility] 0.0-0.4 7 monocyte count, blood, automated 0.6 X10E3/UL [facility] 0.1-0.9 7 lymphocyte count, blood, automated 3.3 X10E3/UL [facility] 0.7-3.1 High 7 Absolute Neutrophils 5.6 X10E3/UL [facility] 1.4-7.0 7 basophils as percent of blood leukocytes 1 % [facility] Not Estab. 7 eosinophils as percent of blood leukocytes 4 % [facility] Not Estab. 7 monocytes as percent of blood leukocytes 6 % [facility] Not Estab. 7 lymphocytes as percent of blood leukocytes 33 % [facility] Not Estab. 7 neutrophils as percent of blood leukocytes 56 % [facility] Not Estab. 7 platelet count 330 X10E3/UL [facility] 905-136 2247/03/0 7 red blood cell distribution width 16.3 % [facility] 12.3-15.4 High 7 mean corpuscular hemoglobin concentration, RBC 32.3 G/DL [facility] 31.5-35.7 7 mean corpuscular hemoglobin, RBC 27.3 pg [facility] 26.6-33.0 7 mean corpuscular volume, RBC 85 fL [facility] 79-97 7 hematocrit, blood 40.0 % [facility] 34.0-46.6 7 hemoglobin, blood 12.9 g/dL [facility] 11.1-15.9 7 erythrocyte (RBC) count 4.72 X10E6/UL [facility] 3.77-5.28 7 leukocyte count, blood 9.9 X10E3/UL [facility] 3.4-10.8 INSURANCE PROVIDERS Payer name Policy type / Coverage type Sarah red [employer] [place] [employer] (2) Medicaid [id number] TREATMENT PLAN Date Name PROTHROMBIN TIME WIT H INR CBC (INCLUDES DIFF/P LT) BASIC METABOLIC PANE L W/EGFR
== END 2024-09-24 08:23 | disposition home or self-care (01) ==
LOC: ANHIMG 08:25
PROVIDERS: Visit Provider Obstetrics & Gynecology
DX: Z12.31 Encounter for screening mammogram for malignant neoplasm of breast (principal)
CPT/HCPCS: 77063; 77067

== ENCOUNTER 2025-05-05 07:10 | Outpatient (CLI) | payer OTHER, SELFPAY ==
[2025-05-05 08:09] LABS: MALB Creatinine Ratio 41.2 mg/g (0-30)
[2025-05-05 08:11] LABS: Hematocrit 41.0 % (37.0-47.0); Hemoglobin 12.9 g/dL (12.0-15.0); Mean Corpuscular HGB Conc 31.5 g/dl (32-36); Mean Corpuscular Hemoglobin 27.7 pg (26-34); Mean Corpuscular Volume 88.0 fl (80-100); Platelet Count Result 434 k/mm3 (150-375); Red Blood Count 4.66 M/mm3 (4.2-5.4); White Blood Count 8.4 K/mm3 (4.5-10.0)
[2025-05-05 08:15] LABS: Alanine Aminotransferase 14 U/L (6-35); Albumin Level 4.6 g/dL (3.5-5.1); Alkaline Phosphatase 50 U/L (38-126); Anion Gap 11 mmol/L (4-12); Aspartate Amino Transferase 24 U/L (14-36); Bilirubin,Total 0.3 mg/dL (0.2-1.3); Blood Urea Nitrogen 20 mg/dL (7-17); Calcium 10.0 mg/dL (8.4-10.2); Carbon Dioxide 23 mmol/L (22-30); Chloride 105 mmol/L (98-107); Cholesterol 150 mg/dL (0-200); Estimated Glomerular Filt Rate 51; Glucose 100 mg/dL (65-110); HDL Direct 55 mg/dL; Magnesium 1.9 mg/dL (1.6-2.3); Potassium 3.6 mmol/L (3.4-5.0); Sodium 139 mmol/L (137-145); Total Protein 8.2 g/dL (6.3-8.2); Triglycerides 110 mg/dL (<150)
[2025-05-05 08:31] LABS: Free T4 Free Thyroxine 1.68 ng/dL (0.78-2.19)
[2025-05-05 08:50] LABS: Thyroid Stimulating Hormone 0.025 uIU/mL (0.465-4.680)
[2025-05-05 09:04] LABS: Hemoglobin A1C 6.0 % (<5.7)
== END 2025-05-05 07:11 | disposition home or self-care (01) ==
LOC: ANHLAB 07:11
PROVIDERS: PCP Family Medicine; Visit Provider Family Medicine
DX: E78.5 Hyperlipidemia, unspecified (principal); Z13.220 Encounter for screening for lipoid disorders; E03.9 Hypothyroidism, unspecified; I12.9 Hypertensive chronic kidney disease with stage 1 through stage 4 chronic kidney disease, or unspecified chronic kidney disease; E11.22 Type 2 diabetes mellitus with diabetic chronic kidney disease; E11.29 Type 2 diabetes mellitus with other diabetic kidney complication; N18.31 Chronic kidney disease, stage 3a; R80.9 Proteinuria, unspecified; E87.6 Hypokalemia
CPT/HCPCS: 36415; 80048; 80061; 80076; 82043; 83036; 83735; 84439; 84443; 85027